=== PATIENT | male | born 1955 | race Caucasian/White ===

== ENCOUNTER 2019-07-19 19:52 | Inpatient (IN) ==
[2019-07-19] MEDS ORDERED: IOPAMIDOL 100 ML BOTTLE IV ONE ×2 (19:53→23:03)
--- NOTE | 2019-07-19 20:31 | Emergency Department Note ---
Abdominal Pain HPI - General Chief Complaint: Abdominal Pain Stated Complaint: abdominal pain Time Seen by Provider: 07/19/19 20:08 Source: patient, EMS Mode of arrival: EMS Limitations: no limitations - History of Present Illness HPI Narrative: 63-year-old male patient presents emergency department via ambulance with chief complaint of sudden onset exquisite left lower quadrant abdominal pain. Patient tells me he was simply sitting at home when the pain started around 1630 this afternoon. Soon afterwards his gave him 1 of her prescribed nitroglycerin tablets. This had no effect on his abdominal pain. However, he did become shaky and jittery associated with the medication ingestion. She admits to being chilled at home. He denies any overt fevers or sweats. He denies any congestion, runny nose, or cough. He denies any exposure to the novel coronavirus. He denies shortness of breath. He denies retrosternal chest pain or palpitations. He denies nausea, vomiting, diarrhea, or constipation. He had to normal bowel movements today. He describes the pain to his abdomen is sharp, stabbing type pain. He denies any previous history of intra-abdominal problems including diverticulitis. He does mention undergoing a colonoscopy 3 years ago that mentioned several diverticula. Patient admits to a history of hypothyroidism and chronic pain issues. - Related Data Home Medications Medication Instructions Recorded Confirmed Levothyroxine Sodium [Levoxyl] 137 mcg PO DAILY 01/22/16 01/22/16 Ibuprofen [Motrin] 800 mg PO 01/13/17 Allergies Allergy/AdvReac Type Severity Reaction Status Date / Time No Known Drug Allergies Allergy Verified 01/13/17 12:57 Review of Systems All systems ED: reviewed and negative except as stated. Abdominal Pain PMH - Social History Smoking status: Never smoker Physical Exam Limitations: no limitations General appearance: alert, anxious, other (Well-developed, well-nourished, 63-year-old male patient laying semirecumbent on the emergency room gurney in no acute respiratory distress.) Head: atraumatic, normocephalic Eye: Present: normal appearance, PERRL, EOMI. Absent: scleral icterus, conjunctival injection ENT: Present: normal oropharynx, mucous membranes moist Neck: Present: trachea midline. Absent: lymphadenopathy Chest: Present: symmetric chest wall rise Respiratory: Present: normal lung sounds bilaterally. Absent: respiratory distress, wheezes, stridor, accessory muscle use, prolonged expiratory phase Cardiovascular: Present: regular rate, normal rhythm. Absent: systolic murmur, diastolic murmur Abdominal: Present: soft, tenderness, hyperactive bowel sounds (To the right lower quadrant.), tenderness at [place]'s Point. Absent: distention, guarding, rebound, rigidity, organomegaly, ascites, mass Abdominal tenderness: Present: RLQ, LLQ, severe Extremities: Present: normal inspection, full ROM, normal capillary refill. Absent: pedal edema Back: Absent: CVA tenderness (R), CVA tenderness (L), spinous process tenderness Neurological: Present: alert, oriented X3 Psychiatric: Present: normal affect, anxious Skin: Present: warm, dry, pallor Course Course Narrative: Patient was brought into the emergency department and a history and physical exam was performed. Saline lock was established and laboratory studies were drawn. Abdominal/pelvic CT scan with contrast was ordered and reviewed. Patient was given Dilaudid 0.5 mg IVP. Normal saline was started 1000 mL bolus. Review of his laboratory studies are as follows: CBC WBC 4.8, RBC 4.06, hemoglobin 13.0, hematocrit 38.9, platelets 237. CMP anion gap 17, all others within normal limits. Contrast abdominal/pelvic CT scan showing sigmoid diverticulitis with likely small volume pneumoperitoneum associated with presumably perforation. Radiologist also mentions inflammatory change for the diverticulitis extending into the superior lateral bladder wall. At a minimum this is associated with cyst tightness but may also represent colovesicular fistula. The differential diagnosis of lower abdominal pain in the adult patient includes the following: Appendicitis, diverticulitis, nephrolithiasis, pyelonephritis, acute urinary retention, cystitis, infectious colitis. All of these conditions were considered during the patient's evaluation and work-up. After reviewing all the data I discussed these findings with my collaborating physician (Dr. Banks) who recommended I consult with the general surgeon about likely admission to the hospital. With this in mind, I reached out to our on- call general surgeon (Dr. Price) and discussed the case with him. He concurred that the patient should be admitted under the surgical service. He recommended holding orders and that he would follow-up the patient tomorrow morning. Afterward, I discussed this with the patient and he agrees to admission. Patient continues to be afebrile and has been hemodynamically stable. He is going to be admitted as mentioned under the care of Dr. Price and the surgical service. After holding orders, all further treatment decisions, modalities, and ultimate patient disposition will be carried out by Dr. Price. Vital Signs Temperature 98.1 F 07/19/19 19:55 Pulse Rate 83 07/19/19 19:55 Respiratory Rate 16 07/19/19 19:55 Blood Pressure 132/72 07/19/19 19:55 Pulse Oximetry (%) 99 07/19/19 19:55 Temperature 98.1 F 07/19/19 19:55 Pulse Rate 77 07/19/19 21:46 Respiratory Rate 16 07/19/19 19:55 Blood Pressure 142/79 07/19/19 21:46 Pulse Oximetry (%) 94 07/19/19 21:46 Abdominal Pain - Lab Data Lab results reviewed: Yes I reviewed the patient's lab results. Result diagrams: 07/19/19 20:30 07/19/19 20:30 Lab Results 07/19/19 07/19/19 Range/Units 20:30 20:30 WBC 4.8 (4.50-11.00) K/mcL RBC 4.06 L (4.63-6.08) M/mcL Hgb 13.0 L (13.7-17.5) g/dL Hct 38.9 L (40.1-51.0) % POC Hct 40.0 L (41.0-55.0) % MCV 95.8 (80.0-100.0) fL MCH 32.0 (26.0-34.0) pg MCHC 33.4 (31.0-36.0) g/dL RDW 13.3 (11.5-14.5) % Plt Count 237 (140-440) K/mcL MPV 9.1 (7.4-10.4) fL Gran % 83.4 H (38.0-78.0) % Lymph % (Auto) 13.4 L (15.5-49.0) % [place] % (Auto) 1.5 (1.0-12.0) % Eos % (Auto) 1.5 (0.0-7.0) % Baso % (Auto) 0.2 (0.0-2.0) % Gran # 3.98 (1.80-8.00) K/mcL Lymph # (Auto) 0.64 L (1.50-4.80) K/mcL [place] # (Auto) 0.07 L (0.10-0.90) K/mcL Eos # (Auto) 0.07 (0.00-0.70) K/mcL Baso # (Auto) 0.01 (0.00-0.30) K/mcL POC Sodium 139 (133-145) mmol/L Sodium 140 (133-145) mmol/L POC Potassium 3.9 (3.3-5.1) mmol/L Potassium 4.1 (3.3-5.1) mmol/L POC Chloride 101 (96-108) mmol/L Chloride 99 (96-108) mmol/L Carbon Dioxide 24 (22-30) mmol/L POC Total CO2 25 (22-30) mmol/L Anion Gap 17.0 H (8-16) POC BUN 16 (8-23) mg/dl BUN 17 (8-23) mg/dl Creatinine 0.9 (0.7-1.2) mg/dl POC Creatinine 0.9 (0.7-1.2) mg/dl GFR Calculation 92 Glucose 91 (70-105) mg/dL POC Glucose 93 (70-105) mg/dL Calcium 9.6 (8.6-10.4) mg/dl POC WB Ioniz Calcium 1.19 (1.16-1.32) mmol/L Total Bilirubin 0.5 (0.0-1.0) mg/dL AST 31 (0-37) U/l ALT 23 (0-40) U/l Alkaline Phosphatase 65 (39-117) U/L Total Protein 7.5 (5.9-8.4) gm/dL Albumin 4.5 (3.2-5.2) gm/dL Globulin 3.0 (2.2-3.7) gm/dL Albumin/Globulin Ratio 1.5 (1.0-2.3) - Radiology Data Radiology results reviewed: Yes I reviewed the patient's radiology results. Radiologist read the contrast abdominal/pelvic CT scan sigmoid diverticulitis with small volume pneumoperitoneum and small volume free fluid likely as a result of perforation. Radiologist also mentioned inflammatory change from the diverticulitis extending into the left superolateral bladder wall. This is associated with cystitis and possible colovesicular fistula. However, the radiologist mentions there is no gas within the bladder lumen at the time of exa m. Disposition Pt seen by [employer]N/PA only: Yes Clinical Impression: Diverticulitis Disposition: Xfer As Inpt ([facility]) Condition: Good Referrals: Shonna Marquez ARNP [Primary Care Provider] - Irineo Price MD [Physician] - Time of Disposition: 22:10
[2019-07-19] MEDS ORDERED: HYDROmorphone 0.5 MG/0.5 ML SYRINGE IV PRN (20:35)
[2019-07-19 20:36] LABS: POC Blood Urea Nitrogen 16 mg/dl (8-23); POC CO2 25 mmol/L (22-30); POC Calcium, Ionized 1.19 mmol/L (1.16-1.32); POC Chloride 101 mmol/L (96-108); POC Creatinine 0.9 mg/dl (0.7-1.2); POC Glucose, Random 93 mg/dL (70-105); POC Potassium 3.9 mmol/L (3.3-5.1); POC Sodium 139 mmol/L (133-145)
[2019-07-19] MEDS ORDERED: ONDANSETRON 4 MG/2 ML VIAL IV ONE (21:10)
[2019-07-19 21:31] LABS: Basophils # (Auto) 0.01 K/mcL (0.00-0.30); Basophils % (Auto) 0.2 % (0.0-2.0); Eosinophils # (Auto) 0.07 K/mcL (0.00-0.70); Eosinophils % (Auto) 1.5 % (0.0-7.0); Granulocytes % (Auto) 83.4 % (38.0-78.0); Hematocrit 38.9 % (40.1-51.0); Lymphocytes # (Auto) 0.64 K/mcL (1.50-4.80); Lymphocytes % (Auto) 13.4 % (15.5-49.0); Mean Cell Volume 95.8 fL (80.0-100.0); Mean Corpuscular HGB Conc 33.4 g/dL (31.0-36.0); Mean Platelet Volume 9.1 fL (7.4-10.4); Monocytes # (Auto) 0.07 K/mcL (0.10-0.90); Monocytes % (Auto) 1.5 % (1.0-12.0); Platelet Count 237 K/mcL (140-440); RBC 4.06 M/mcL (4.63-6.08); Red Cell Distribution Width 13.3 % (11.5-14.5); WBC 4.8 K/mcL (4.50-11.00)
[2019-07-19 21:51] LABS: ALT/SGPT 23 U/l (0-40); AST/SGOT 31 U/l (0-37); Albumin 4.5 gm/dL (3.2-5.2); Albumin/Globulin Ratio 1.5 (1.0-2.3); Alkaline Phosphatase 65 U/L (39-117); Bilirubin,Total 0.5 mg/dL (0.0-1.0); Blood Urea Nitrogen 17 mg/dl (8-23); Calcium 9.6 mg/dl (8.6-10.4); Carbon Dioxide 24 mmol/L (22-30); Chloride 99 mmol/L (96-108); Glomerular Filtration Rate 92; Glucose 91 mg/dL (70-105)
[2019-07-19] MEDS ORDERED: ONDANSETRON 4 MG/2 ML VIAL IV PRN (22:12)
[2019-07-19] MEDS ORDERED: ACETAMINOPHEN 325 MG TABLET PO PRN (22:12)
[2019-07-19] MEDS: metroNIDAZOLE 500 MG/100 ML BAG IV SCH (23:23)
[2019-07-19] MEDS: 0.9 % SODIUM CHLORIDE 1,000 ML IV SCH (23:25)
[2019-07-20] MEDS: HYDROmorphone 0.5 MG/0.5 ML SYRINGE IV PRN ×8 (00:30→23:29)
[2019-07-20] MEDS: CIPROFLOXACIN 400 MG/200 ML BAG IV SCH ×3 (00:34→20:49)
[2019-07-20] MEDS: 0.9 % SODIUM CHLORIDE 1,000 ML IV SCH ×3 (05:26→23:30)
[2019-07-20] MEDS: metroNIDAZOLE 500 MG/100 ML BAG IV SCH ×4 (05:51→23:28)
[2019-07-20] MEDS: 0.9 % SODIUM CHLORIDE 10 ML SYRINGE IV SCH ×3 (05:52→21:12)
[2019-07-20 06:38] LABS: Basophils # (Auto) 0 K/mcL (0.00-0.30); Basophils % (Auto) 0 % (0.0-2.0); Eosinophils # (Auto) 0 K/mcL (0.00-0.70); Eosinophils % (Auto) 0 % (0.0-7.0); Granulocytes % (Auto) 89.7 % (38.0-78.0); Hematocrit 36.4 % (40.1-51.0); Hemoglobin 12.1 g/dL (13.7-17.5); Lymphocytes # (Auto) 0.38 K/mcL (1.50-4.80); Lymphocytes % (Auto) 5.1 % (15.5-49.0); Mean Cell Volume 96.6 fL (80.0-100.0); Mean Corpuscular HGB Conc 33.2 g/dL (31.0-36.0); Monocytes # (Auto) 0.39 K/mcL (0.10-0.90); Monocytes % (Auto) 5.2 % (1.0-12.0); Platelet Count 195 K/mcL (140-440); RBC 3.77 M/mcL (4.63-6.08); Red Cell Distribution Width 13.4 % (11.5-14.5); WBC 7.5 K/mcL (4.50-11.00)
[2019-07-20 07:00] LABS: ALT/SGPT 20 U/l (0-40); AST/SGOT 25 U/l (0-37); Albumin/Globulin Ratio 1.6 (1.0-2.3); Alkaline Phosphatase 47 U/L (39-117); Bilirubin,Direct < 0.2 mg/dL (0.0-0.3); Bilirubin,Total 0.9 mg/dL (0.0-1.0); Blood Urea Nitrogen 14 mg/dl (8-23); Calcium 8.9 mg/dl (8.6-10.4); Carbon Dioxide 24 mmol/L (22-30); Chloride 100 mmol/L (96-108); Globulin 2.5 gm/dL (2.2-3.7); Glomerular Filtration Rate 96; Glucose 127 mg/dL (70-105); Lactate Dehydrogenase 147 U/L (94-250); Phosphorous 4.2 mg/dL (2.7-4.5); Triglycerides 60 mg/dl (<150); Uric Acid 4.8 mg/dL (2.5-8.0)
--- NOTE | 2019-07-20 08:20 | Cat Scan Report ---
History: Sudden onset Bilateral lower quadrant pain TECHNIQUE: The patient was imaged following intravenous but no oral contrast scanning during the portal venous phase from the diaphragm to the symphysis pubis. Sagittal and coronal reformats were created. The radiation exposure was limited using dose reduction technology. FINDINGS: There are small bands of scar or discoid atelectasis in the lingula lateral basal segment left lower lobe and inferiorly medially in the right middle lobe. No pleural effusion is present. The liver is normal in size but there is mild fatty infiltration. The spleen is normal in size and homogeneous. Gallbladder and bile ducts are normal. There is no evidence of mass or inflammation the pancreas. The adrenals are normal. Kidneys are normal in size shape and contour. There is an exophytic 1.4 cm cyst at the lower pole the right kidney. An 8 mm parenchymal cyst is seen medially in the lower pole of left kidney.. There is mild perinephric stranding of the fat surrounding both kidneys. There is no evidence of kidney stone or hydronephrosis. There is mild ectasia of the distal abdominal aorta and common iliac arteries. The There is minimal plaque formation in the aorta. There are multiple diverticula in the descending and sigmoid colon. Acute diverticulitis is present in the mid and proximal sigmoid colon. There is significant stranding and inflammation of the surrounding fat. This is contiguous with the dome of the bladder. The wall of the bladder also appears to be thickened and inflamed. There is no associated abscess and no gas within the lumen of the bladder. Trace amount of ascites is seen deep in the pelvis. There is also small amount of free intraperitoneal air anterior to the liver. There is severe disc space narrowing at L4-5 and L5-S1 and moderate size spurs forming around the margins of the disks throughout the lumbar and lower thoracic spine. IMPRESSION: Acute diverticulitis of the sigmoid colon. There has been a perforation with small amount of free intraperitoneal air and a small amount of ascites deep in the pelvis No abscess Inflammation from the inflamed diverticula extending to and involving the wall the bladder Interpreted and Authenticated by: Javier Mena 07/20/19
--- NOTE | 2019-07-20 10:50 | General Surg History&Physical ---
History of Present Illness Patient information: Note initiated : 07/20/19 at 10:48 am Service Date, if different from initiated Date: [] Patient: Joni Pedro 63 y/o M admitted on 07/19/19 for abdominal pain. Chief Complaint: [] HPI: Mr. Pedro is a 63 year old M admitted with acute diverticulitis. The patient had acute onset of severe lower abdominal left lower quadrant and suprapubic pain about 4 PM yesterday. She did not have nausea or vomiting. He states that initially it felt like gas pain became increasingly severe. He had a regular bowel movement about an hour later. He was finally seen in the emergency room about 7 PM where evaluation reveals evidence of acute sigmoid diverticulitis with evidence of microperforation. He did not have any fever or chills. He has colonoscopy in 2017 which was normal except for diverticulosis. He had a brother who had colon polyps. Patient was admitted last evening and still has significant discomfort. He remains afebrile and does not have leukocytosis. Review of Systems All systems PM: reviewed and no additional remarkable complaints except as stated (negative except as noted in HPI and below) - EENT Ears: bilateral: decreased hearing, tinnitus Nose, mouth and throat: abnormal hearing - Musculoskeletal arthralgias, other ( diffuse joint pain) Past History Past medical history: Osteoarthritis. Hypothyroidism Past surgical history: Arthroscopy right knee 2. Bilateral stapedectomy of ears Past family history: Father age 73 due to congestive heart failure. Mom age 85 due to complications of diabetes. One brother due to acute IL. One brother due to pancreatic cancer. One brother due to accidental fall Past social history: Retired . She was one can of tobacco every 2 weeks. Uses at least 2 alcoholic beverages daily. Denies drug use Medications and Allergies Home Medications Medication Instructions Recorded Confirmed Type Levothyroxine Sodium [Levoxyl] 100 mcg PO DAILY 01/22/16 07/19/19 History Ibuprofen [Motrin] 800 mg PO DAILY 01/13/17 07/19/19 History Glucosam/Chond/Hyalu/Cf Borate 1 each PO BID 07/19/19 07/19/19 History [Move Free Joint Health Tablet] Multivit-Min/FA/Lycopen/Lutein 1 each PO DAILY 07/19/19 07/19/19 History [Adults 50 Plus Multivitamin] Allergies Allergy/AdvReac Type Severity Reaction Status Date / Time No Known Drug Allergies Allergy Unverified 07/19/19 23:39 Exam Temp Pulse Resp BP Pulse Ox 97.5 F 74 16 128/80 93 07/20/19 08:00 07/20/19 08:00 07/20/19 08:00 07/20/19 08:00 07/20/19 08:00 - General physical appearance well developed, well nourished, no distress - Eyes PERRL, normal ocular movement - ENT normal pinna, normal nares, normal mucosa, no hearing loss, no congestion - Head Head exam IM: Present: atraumatic, normocephalic - Neck no masses, no bruits, trachea midline, no lymphadenopathy, no venous distension - Cardiovascular Cardiovascular exam IM: Present: normal rate and rhythm, RRR, +S1, +S2. Absent: JVD, tachycardia - Respiratory normal expansion, normal respiratory effort, clear to percussion, clear to auscultation - Abdomen Abdomen: Present: tender (diffusely tender abdomen with guarding; abdomen is rigid in the suprapubic midline and left lower quadrant), bowel sounds Hernia: Present: none - Genitourinary Present: normal penis with no external lesions - Integumentary Present: no rash, no growths, no abnormal pigmentation - Neurologic Present: normal coordination, normal sensation - Musculoskeletal Present: normal gait, normal posture - Psychiatric Present: oriented to time, oriented to person, oriented to place, speech is normal, memory intact Assessment and Plan (1) Acute diverticulitis of intestine Bowel rest. Clear liquid diet as tolerated. Ciprofloxacin and metronidazole IV 4 days. Follow-up CT on Wednesday. If clinically improved. We'll discharged home on oral antibiotics 3 weeks Status: Acute (2) Hypothyroidism home medications will be given Status: Acute (3) Osteoarthritis Toradol 30 mg IV every 6 hours when necessary joint pain Status: Acute
[2019-07-21] MEDS: 0.9 % SODIUM CHLORIDE 1,000 ML IV SCH ×4 (03:30→22:35)
[2019-07-21] MEDS: metroNIDAZOLE 500 MG/100 ML BAG IV SCH ×3 (05:19→17:27)
[2019-07-21] MEDS: 0.9 % SODIUM CHLORIDE 10 ML SYRINGE IV SCH ×3 (05:19→21:22)
[2019-07-21 06:40] LABS: Basophils # (Auto) 0.01 K/mcL (0.00-0.30); Basophils % (Auto) 0.1 % (0.0-2.0); Eosinophils # (Auto) 0.02 K/mcL (0.00-0.70); Eosinophils % (Auto) 0.2 % (0.0-7.0); Granulocytes % (Auto) 88.9 % (38.0-78.0); Hematocrit 35.1 % (40.1-51.0); Hemoglobin 11.2 g/dL (13.7-17.5); Lymphocytes # (Auto) 0.61 K/mcL (1.50-4.80); Lymphocytes % (Auto) 7.1 % (15.5-49.0); Mean Cell Volume 99.4 fL (80.0-100.0); Mean Corpuscular HGB Conc 31.9 g/dL (31.0-36.0); Mean Platelet Volume 9.4 fL (7.4-10.4); Monocytes # (Auto) 0.32 K/mcL (0.10-0.90); Monocytes % (Auto) 3.7 % (1.0-12.0); Platelet Count 187 K/mcL (140-440); RBC 3.53 M/mcL (4.63-6.08); Red Cell Distribution Width 13.4 % (11.5-14.5); WBC 8.7 K/mcL (4.50-11.00)
[2019-07-21 07:05] LABS: ALT/SGPT 15 U/l (0-40); AST/SGOT 19 U/l (0-37); Albumin 3.4 gm/dL (3.2-5.2); Albumin/Globulin Ratio 1.2 (1.0-2.3); Alkaline Phosphatase 59 U/L (39-117); Bilirubin,Direct < 0.2 mg/dL (0.0-0.3); Bilirubin,Total 0.7 mg/dL (0.0-1.0); Blood Urea Nitrogen 13 mg/dl (8-23); Carbon Dioxide 26 mmol/L (22-30); Chloride 97 mmol/L (96-108); Globulin 2.9 gm/dL (2.2-3.7); Glomerular Filtration Rate 92; Glucose 105 mg/dL (70-105); Lactate Dehydrogenase 172 U/L (94-250); Triglycerides 68 mg/dl (<150)
[2019-07-21 07:18] LABS: Phosphorous 2.4 mg/dL (2.7-4.5)
[2019-07-21 07:20] LABS: Carcinoembryonic Antigen 1.7 ng/mL (0.0-3.4)
[2019-07-21] MEDS: LEVOTHYROXINE 100 MCG TABLET PO SCH (07:35)
[2019-07-21] MEDS: CIPROFLOXACIN 400 MG/200 ML BAG IV SCH ×2 (08:22→21:30)
[2019-07-21] MEDS: HYDROmorphone 0.5 MG/0.5 ML SYRINGE IV PRN ×2 (13:30→20:23)
--- NOTE | 2019-07-21 13:43 | General Surgery Progress Note ---
Subjective Patient reports: feels better, pain is less, flatus, bowel movement, afebrile Narrative: Note initiated : 07/21/19 at 1:41 pm Service Date, if different from initiated Date: [] Patient: Joni Pedro 63 y/o M admitted on 07/19/19 for abdominal pain. Chief Complaint: [patient continues to improve. He has less abdominal discomfort. He has had flatus but no bowel movement. White count 8.7, hemoglobin 11.2, hematocrit 35.1, phosphorus 2.4] Objective Temp Pulse Resp BP Pulse Ox 98.6 F 80 20 113/77 93 07/21/19 08:00 07/21/19 08:00 07/21/19 08:00 07/21/19 08:00 07/21/19 08:00 - Additional Data Intake & Output - Last 24 hours: Intake & Output 07/19/19 07/20/19 07/21/19 07/22/19 05:59 05:59 05:59 05:59 Intake Total 1052 4360 1340 Output Total 350 925 500 Balance 702 3435 840 Weight 178 lb 14.4 oz 183 lb - General physical appearance well developed, well nourished, no distress - Eyes PERRL, normal ocular movement - ENT normal pinna, normal nares, normal mucosa, no hearing loss, no congestion - Neck no masses, no bruits, trachea midline, no lymphadenopathy, no venous distension - Respiratory normal expansion, normal respiratory effort, clear to auscultation - Cardiovascular Cardiovascular exam: Present: normal rate and rhythm, RRR, +S1, +S2. Absent: JVD, tachycardia - Abdomen tender (diffuse tenderness with guarding in left lower quadrant and suprapubic area; normal bowel sounds) - Integumentary no rash, no growths, no abnormal pigmentation - Neurologic normal coordination, normal sensation - Musculoskeletal normal gait, normal posture - Psychiatric oriented to time, oriented to person, oriented to place, speech is normal, memory intact - Labs 07/21/19 05:14 07/21/19 05:14 Diabetes panel 07/21/19 Range/Units 05:14 Sodium 131 L (133-145) mmol/L Potassium 4.3 (3.3-5.1) mmol/L Chloride 97 (96-108) mmol/L Carbon Dioxide 26 (22-30) mmol/L BUN 13 (8-23) mg/dl Creatinine 0.9 (0.7-1.2) mg/dl Glucose 105 (70-105) mg/dL Calcium 9.0 (8.6-10.4) mg/dl AST 19 (0-37) U/l ALT 15 (0-40) U/l Alkaline Phosphatase 59 (39-117) U/L Total Protein 6.3 (5.9-8.4) gm/dL Albumin 3.4 (3.2-5.2) gm/dL Triglycerides 68 (<150) mg/dl Calcium panel 07/21/19 Range/Units 05:14 Calcium 9.0 (8.6-10.4) mg/dl Phosphorus 2.4 L (2.7-4.5) mg/dL Albumin 3.4 (3.2-5.2) gm/dL Pituitary panel 07/21/19 Range/Units 05:14 Sodium 131 L (133-145) mmol/L Potassium 4.3 (3.3-5.1) mmol/L Chloride 97 (96-108) mmol/L Carbon Dioxide 26 (22-30) mmol/L BUN 13 (8-23) mg/dl Creatinine 0.9 (0.7-1.2) mg/dl Glucose 105 (70-105) mg/dL Calcium 9.0 (8.6-10.4) mg/dl Adrenal panel 07/21/19 Range/Units 05:14 Sodium 131 L (133-145) mmol/L Potassium 4.3 (3.3-5.1) mmol/L Chloride 97 (96-108) mmol/L Carbon Dioxide 26 (22-30) mmol/L BUN 13 (8-23) mg/dl Creatinine 0.9 (0.7-1.2) mg/dl Glucose 105 (70-105) mg/dL Calcium 9.0 (8.6-10.4) mg/dl Total Bilirubin 0.7 (0.0-1.0) mg/dL AST 19 (0-37) U/l ALT 15 (0-40) U/l Alkaline Phosphatase 59 (39-117) U/L Total Protein 6.3 (5.9-8.4) gm/dL Albumin 3.4 (3.2-5.2) gm/dL Assessment and Plan (1) Acute diverticulitis of intestine Status: Acute Assessment and plan: Patient is clinically improved Current Visit: Yes (2) Hypothyroidism Status: Acute Current Visit: Yes (3) Osteoarthritis Status: Acute Current Visit: Yes - Time Spent With Patient Total time spent is greater than 50% in coordination of care (as documented) at patient's floor/unit and/or counseling patient:
[2019-07-21] MEDS ORDERED: CALCIUM CARBONATE 500 MG TAB.CHEW CHEWED PRN (21:11)
[2019-07-21] MEDS ORDERED: ACETAMINOPHEN 1,000 MG/100 ML BOTTLE IV PRN (21:16)
[2019-07-21] MEDS: PANTOPRAZOLE 40 MG VIAL IV SCH (21:38)
[2019-07-21] MEDS: MEROPENEM 1 GM in 0.9 % SODIUM CHLORIDE 50 ML IV SCH (22:50)
[2019-07-22] MEDS: KETOROLAC 30 MG/ML VIAL IV PRN ×2 (00:09→05:59)
[2019-07-22] MEDS: metroNIDAZOLE 500 MG/100 ML BAG IV SCH ×4 (00:09→18:57)
[2019-07-22] MEDS: HYDROmorphone 0.5 MG/0.5 ML SYRINGE IV PRN (05:59)
[2019-07-22] MEDS: 0.9 % SODIUM CHLORIDE 10 ML SYRINGE IV SCH ×3 (06:11→20:53)
[2019-07-22 06:42] LABS: Basophils # (Auto) 0.02 K/mcL (0.00-0.30); Basophils % (Auto) 0.2 % (0.0-2.0); Eosinophils # (Auto) 0.04 K/mcL (0.00-0.70); Eosinophils % (Auto) 0.3 % (0.0-7.0); Granulocytes % (Auto) 89.8 % (38.0-78.0); Hematocrit 36.5 % (40.1-51.0); Hemoglobin 11.8 g/dL (13.7-17.5); Lymphocytes # (Auto) 0.71 K/mcL (1.50-4.80); Mean Cell Volume 98.1 fL (80.0-100.0); Mean Corpuscular HGB Conc 32.3 g/dL (31.0-36.0); Mean Platelet Volume 9.6 fL (7.4-10.4); Monocytes # (Auto) 0.44 K/mcL (0.10-0.90); Monocytes % (Auto) 3.7 % (1.0-12.0); Platelet Count 217 K/mcL (140-440); RBC 3.72 M/mcL (4.63-6.08); Red Cell Distribution Width 13.2 % (11.5-14.5); WBC 11.9 K/mcL (4.50-11.00)
[2019-07-22 06:53] LABS: ALT/SGPT 12 U/l (0-40); AST/SGOT 18 U/l (0-37); Albumin 3.3 gm/dL (3.2-5.2); Alkaline Phosphatase 66 U/L (39-117); Bilirubin,Direct < 0.2 mg/dL (0.0-0.3); Bilirubin,Total 0.5 mg/dL (0.0-1.0); Blood Urea Nitrogen 14 mg/dl (8-23); Calcium 8.8 mg/dl (8.6-10.4); Carbon Dioxide 24 mmol/L (22-30); Chloride 98 mmol/L (96-108); Globulin 3.4 gm/dL (2.2-3.7); Glomerular Filtration Rate 92; Glucose 105 mg/dL (70-105); Lactate Dehydrogenase 169 U/L (94-250); Triglycerides 62 mg/dl (<150); Uric Acid 4.3 mg/dL (2.5-8.0)
[2019-07-22 06:57] LABS: Phosphorous 2.2 mg/dL (2.7-4.5)
[2019-07-22] MEDS: PANTOPRAZOLE 40 MG VIAL IV SCH ×2 (08:10→20:26)
[2019-07-22] MEDS: LEVOTHYROXINE 100 MCG TABLET PO SCH (08:10)
[2019-07-22] MEDS: 0.9 % SODIUM CHLORIDE 1,000 ML IV SCH ×2 (09:53→19:26)
[2019-07-22] MEDS: MEROPENEM 1 GM in 0.9 % SODIUM CHLORIDE 50 ML IV SCH ×3 (09:54→23:42)
--- NOTE | 2019-07-22 12:11 | General Surgery Progress Note ---
Subjective Patient reports: feels better, pain is less, tolerating liquids well, flatus, bowel movement, fever Narrative: Note initiated : 07/22/19 at 12:08 pm Service Date, if different from initiated Date: [] Patient: Joni Pedro 63 y/o M admitted on 07/19/19 for abdominal pain. Chief Complaint: [Patient complained of increased abdominal discomfort last evening. He also had profuse sweats. His peak temperature was 99.4. He also had heartburn which was treated and improved appropriately. Today he states he feels much better. He had a very large bowel movement today and had relief of the palpable pain. He does not have tenderness that was apparently last evening. White blood count 11.9, hemoglobin 11.8, hematocrit 36.5, phosphorus 2.2.] Objective Temp Pulse Resp BP Pulse Ox 98.8 F 68 14 130/85 98 07/22/19 07:58 07/22/19 07:58 07/22/19 07:58 07/22/19 07:58 07/22/19 07:58 - Additional Data Intake & Output - Last 24 hours: Intake & Output 07/20/19 07/21/19 07/22/19 07/23/19 05:59 05:59 05:59 05:59 Intake Total 1052 4360 4270 1150 Output Total 917 754 9583 Balance 702 3435 3270 1150 Weight 178 lb 14.4 oz 183 lb 182 lb 14.4 oz - General physical appearance well developed, well nourished, moderate distress, moderate pain - Eyes PERRL, normal ocular movement - ENT normal pinna, normal nares, normal mucosa, no hearing loss, no congestion - Neck no masses, no bruits, trachea midline, no lymphadenopathy, no venous distension - Respiratory normal expansion, normal respiratory effort, clear to auscultation - Cardiovascular Cardiovascular exam: Present: normal rate and rhythm, RRR, +S1, +S2. Absent: JVD, tachycardia - Abdomen tender (mild tenderness and suprapubic midline and left lower quadrant; active bowel sounds; no mass) - Integumentary no rash, no growths, no abnormal pigmentation - Neurologic normal coordination, normal sensation - Musculoskeletal normal gait, normal posture - Psychiatric oriented to time, oriented to person, oriented to place, speech is normal, mem ory intact - Labs 07/22/19 05:32 05/09/20 05:32 Diabetes panel 07/22/19 Range/Units 05:32 Sodium 135 (133-145) mmol/L Potassium 3.5 (3.3-5.1) mmol/L Chloride 98 (96-108) mmol/L Carbon Dioxide 24 (22-30) mmol/L BUN 14 (8-23) mg/dl Creatinine 0.9 (0.7-1.2) mg/dl Glucose 105 (70-105) mg/dL Calcium 8.8 (8.6-10.4) mg/dl AST 18 (0-37) U/l ALT 12 (0-40) U/l Alkaline Phosphatase 66 (39-117) U/L Total Protein 6.7 (5.9-8.4) gm/dL Albumin 3.3 (3.2-5.2) gm/dL Triglycerides 62 (<150) mg/dl Calcium panel 07/22/19 Range/Units 05:32 Calcium 8.8 (8.6-10.4) mg/dl Phosphorus 2.2 L (2.7-4.5) mg/dL Albumin 3.3 (3.2-5.2) gm/dL Pituitary panel 07/22/19 Range/Units 05:32 Sodium 135 (133-145) mmol/L Potassium 3.5 (3.3-5.1) mmol/L Chloride 98 (96-108) mmol/L Carbon Dioxide 24 (22-30) mmol/L BUN 14 (8-23) mg/dl Creatinine 0.9 (0.7-1.2) mg/dl Glucose 105 (70-105) mg/dL Calcium 8.8 (8.6-10.4) mg/dl Adrenal panel 07/22/19 Range/Units 05:32 Sodium 135 (133-145) mmol/L Potassium 3.5 (3.3-5.1) mmol/L Chloride 98 (96-108) mmol/L Carbon Dioxide 24 (22-30) mmol/L BUN 14 (8-23) mg/dl Creatinine 0.9 (0.7-1.2) mg/dl Glucose 105 (70-105) mg/dL Calcium 8.8 (8.6-10.4) mg/dl Total Bilirubin 0.5 (0.0-1.0) mg/dL AST 18 (0-37) U/l ALT 12 (0-40) U/l Alkaline Phosphatase 66 (39-117) U/L Total Protein 6.7 (5.9-8.4) gm/dL Albumin 3.3 (3.2-5.2) gm/dL Assessment and Plan (1) Acute diverticulitis of intestine Status: Acute Assessment and plan: Patient is clinically improved. CT of abdomen and pelvis with IV contrast to be performed tomorrow. Discharge status will be based on results of CT Current Visit: Yes (2) Hypothyroidism Status: Acute Current Visit: Yes (3) Osteoarthritis Status: Acute Current Visit: Yes - Time Spent With Patient Total time spent is greater than 50% in coordination of care (as documented) at patient's floor/unit and/or counseling patient:
[2019-07-22] MEDS: POTASSIUM PHOSPHATE 40 MEQ in DEXTROSE 5% IN WATER 500 ML IV SCH ×2 (13:20→20:26)
[2019-07-22] MEDS ORDERED: MELATONIN 3 MG TABLET PO PRN (20:34)
[2019-07-23] MEDS: metroNIDAZOLE 500 MG/100 ML BAG IV SCH ×4 (00:15→23:40)
[2019-07-23] MEDS: 0.9 % SODIUM CHLORIDE 1,000 ML IV SCH ×5 (00:44→17:54)
[2019-07-23] MEDS: 0.9 % SODIUM CHLORIDE 10 ML SYRINGE IV SCH ×4 (04:01→21:33)
[2019-07-23] MEDS: MEROPENEM 1 GM in 0.9 % SODIUM CHLORIDE 50 ML IV SCH ×3 (05:44→21:33)
[2019-07-23 06:04] LABS: Basophils # (Auto) 0.01 K/mcL (0.00-0.30); Basophils % (Auto) 0.1 % (0.0-2.0); Eosinophils # (Auto) 0.15 K/mcL (0.00-0.70); Eosinophils % (Auto) 1.5 % (0.0-7.0); Granulocytes % (Auto) 86.1 % (38.0-78.0); Hematocrit 32.7 % (40.1-51.0); Hemoglobin 10.8 g/dL (13.7-17.5); Lymphocytes # (Auto) 0.61 K/mcL (1.50-4.80); Lymphocytes % (Auto) 6.2 % (15.5-49.0); Mean Cell Volume 96.5 fL (80.0-100.0); Mean Platelet Volume 9.4 fL (7.4-10.4); Monocytes % (Auto) 6.1 % (1.0-12.0); Platelet Count 240 K/mcL (140-440); RBC 3.39 M/mcL (4.63-6.08); Red Cell Distribution Width 13.2 % (11.5-14.5); WBC 9.9 K/mcL (4.50-11.00)
[2019-07-23 06:37] LABS: ALT/SGPT 10 U/l (0-40); AST/SGOT 14 U/l (0-37); Albumin 2.9 gm/dL (3.2-5.2); Alkaline Phosphatase 61 U/L (39-117); Bilirubin,Direct < 0.2 mg/dL (0.0-0.3); Bilirubin,Total 0.4 mg/dL (0.0-1.0); Blood Urea Nitrogen 10 mg/dl (8-23); Calcium 8.6 mg/dl (8.6-10.4); Carbon Dioxide 23 mmol/L (22-30); Globulin 2.9 gm/dL (2.2-3.7); Glomerular Filtration Rate 102; Glucose 113 mg/dL (70-105); Lactate Dehydrogenase 144 U/L (94-250); Phosphorous 2.7 mg/dL (2.7-4.5); Triglycerides 59 mg/dl (<150); Uric Acid 4.5 mg/dL (2.5-8.0)
[2019-07-23 06:47] LABS: Chloride 102 mmol/L (96-108)
[2019-07-23] MEDS: LEVOTHYROXINE 100 MCG TABLET PO SCH (07:05)
--- NOTE | 2019-07-23 09:08 | Cat Scan Report ---
History: Follow-up diverticulitis TECHNIQUE: The patient was imaged following intravenous but no oral contrast from the diaphragm through the symphysis pubis. Sagittal and coronal reformats were created. The radiation exposure was limited using dose reduction technology. FINDINGS: Small bilateral layering pleural effusions are present. There are thick bands of atelectasis in the right lower lobe with smaller bands of atelectasis in left lower lobe as well as right middle lobe and lingula. The liver and spleen are normal in size and homogeneous. The gallbladder bile ducts are normal. There is no evidence of mass or inflammation the pancreas. The adrenals and kidneys are normal. There is mild perinephric stranding around both kidneys. This is a chronic stable finding and may be from prior evidence of obstruction or previous inflammatory reaction. There is a 1 cm cyst in the lower pole of left kidney. The stomach and proximal small intestine are distended and contain a large amount of fluid. There are numerous air-fluid levels in the jejunum. The jejunum measures up to 5.2 cm in diameter. There is a gradual transition to normal caliber ileum near the level of the hilar region of left kidney. The ileum is decompressed. Patient has acute diverticulitis of the descending and sigmoid colon. This has perforated and there is free intraperitoneal air. The volume of free intraperitoneal air has increased since prior CT done on 07/19/19. In addition the patient has now developed a bilobed abscess containing predominantly gas. This is located anterior to the sigmoid, behind the rectus abdominis muscle and above these anterior superior border of the bladder. The inflammation extends down to the wall of the bladder. No air is present within the urinary bladder. The lobulated abscess pocket measures 2.9 x 5.6 cm. Very small amount of ascites is present deep in the pelvis. There are no abnormally enlarged lymph nodes. The aorta and inferior vena cava are normal. Advanced degenerative changes are present throughout the spine. IMPRESSION: Abscess in the pelvis arising from acute diverticulitis of the sigmoid colon Perforation with free intraperitoneal air Mid small bowel obstruction Dr. Price was called with the results Interpreted and Authenticated by: Javier Mena 07/23/19
[2019-07-23] MEDS: PANTOPRAZOLE 40 MG VIAL IV SCH ×2 (09:15→21:32)
--- NOTE | 2019-07-23 12:10 | General Surgery Progress Note ---
Subjective Patient reports: still having pain, pain is less, flatus, diarrhea, afebrile Narrative: Note initiated : 07/23/19 at 12:09 pm Service Date, if different from initiated Date: [] Patient: Joni Pedro 63 y/o M admitted on 07/19/19 for abdominal pain. Chief Complaint: [patient has had significant abdominal distention states that he feels better. He has a CT earlier today that shows progression of his dive rticulitis with a well-formed bilobed diverticular abscess as well as with increased fluid in the pelvis. He also has more free air major dilatation of the small bowel suggesting either severe ileus or distal obstruction. He also had poor dilation, suggesting possible colonic stenosis. Patient counseled for urgent laparotomy with sigmoid colon resection and colostomy. He is informed that He will have drains and Walker catheter postoperatively .he will hospitalized for an additional 4-5 days. ] Objective Temp Pulse Resp BP Pulse Ox 98.3 F 61 18 121/78 96 07/23/19 08:00 07/23/19 08:00 07/23/19 08:00 07/23/19 08:00 07/23/19 08:00 - Additional Data Intake & Output - Last 24 hours: Intake & Output 07/21/19 07/22/19 07/23/19 07/24/19 05:59 05:59 05:59 05:59 Intake Total 4360 4270 4468.1818 150 Output Total 925 1000 950 Balance 3435 3270 3518.1818 150 Weight 183 lb 182 lb 14.4 oz 182 lb - General physical appearance well developed, well nourished, no distress, moderate pain - Eyes PERRL, normal ocular movement - ENT normal pinna, normal nares, normal mucosa, no hearing loss, no congestion - Neck no masses, no bruits, trachea midline, no lymphadenopathy, no venous distension - Respiratory normal expansion, normal respiratory effort, clear to auscultation - Cardiovascular Cardiovascular exam: Present: normal rate and rhythm - Abdomen tender (diffuse lower abdomen and left lower quadrant tenderness with guarding), bowel sounds (present), surgical scars (none), masses (none), distended (. Moderate distention throughout) - Integumentary no rash, no growths, no abnormal pigmentation - Neurologic normal coordination, normal sensation - Musculoskeletal normal gait, normal posture - Psychiatric oriented to time, oriented to person, oriented to place, speech is normal, memory intact - Labs 07/23/19 05:09 07/23/19 05:09 Diabetes panel 07/23/19 Range/Units 05:09 Sodium 138 (133-145) mmol/L Potassium 3.9 (3.3-5.1) mmol/L Chloride 102 (96-108) mmol/L Carbon Dioxide 23 (22-30) mmol/L BUN 10 (8-23) mg/dl Creatinine 0.7 (0.7-1.2) mg/dl Glucose 113 H (70-105) mg/dL Calcium 8.6 (8.6-10.4) mg/dl AST 14 (0-37) U/l ALT 10 (0-40) U/l Alkaline Phosphatase 61 (39-117) U/L Total Protein 5.8 L (5.9-8.4) gm/dL Albumin 2.9 L (3.2-5.2) gm/dL Triglycerides 59 (<150) mg/dl Calcium panel 07/23/19 Range/Units 05:09 Calcium 8.6 (8.6-10.4) mg/dl Phosphorus 2.7 (2.7-4.5) mg/dL Albumin 2.9 L (3.2-5.2) gm/dL Pituitary panel 07/23/19 Range/Units 05:09 Sodium 138 (133-145) mmol/L Potassium 3.9 (3.3-5.1) mmol/L Chloride 102 (96-108) mmol/L Carbon Dioxide 23 (22-30) mmol/L BUN 10 (8-23) mg/dl Creatinine 0.7 (0.7-1.2) mg/dl Glucose 113 H (70-105) mg/dL Calcium 8.6 (8.6-10.4) mg/dl Adrenal panel 07/23/19 Range/Units 05:09 Sodium 138 (133-145) mmol/L Potassium 3.9 (3.3-5.1) mmol/L Chloride 102 (96-108) mmol/L Carbon Dioxide 23 (22-30) mmol/L BUN 10 (8-23) mg/dl Creatinine 0.7 (0.7-1.2) mg/dl Glucose 113 H (70-105) mg/dL Calcium 8.6 (8.6-10.4) mg/dl Total Bilirubin 0.4 (0.0-1.0) mg/dL AST 14 (0-37) U/l ALT 10 (0-40) U/l Alkaline Phosphatase 61 (39-117) U/L Total Protein 5.8 L (5.9-8.4) gm/dL Albumin 2.9 L (3.2-5.2) gm/dL Assessment and Plan (1) Acute diverticulitis of intestine Status: Acute Assessment and plan: Patient is clinically worse. He has major distention small bowel Large intestines. There is narrowing well lower measuring 5.6cm and extending around the bladder. Patient is counseled for exploratory laparotomy with sigmoid colon resection and colostomy l Current Visit: Yes (2) Hypothyroidism Status: Acute Current Visit: Yes (3) Osteoarthritis Status: Acute Current Visit: Yes - Time Spent With Patient Total time spent is greater than 50% in coordination of care (as documented) at patient's floor/unit and/or counseling patient:
[2019-07-23] MEDS ORDERED: ROPIVACAINE HCL/PF 20 ML VIAL IJ ONE (13:15)
[2019-07-23] MEDS ORDERED: KETAMINE 100 MG/ML ML IV ONE (13:15)
[2019-07-23] MEDS ORDERED: PROPOFOL 200 MG/20 ML VIAL IV ONE (13:15)
[2019-07-23] MEDS ORDERED: ONDANSETRON 4 MG/2 ML VIAL IV ONE (13:15)
[2019-07-23] MEDS ORDERED: SUGAMMADEX SODIUM 200 MG/2 ML VIAL IV ONE (13:15)
[2019-07-23] MEDS ORDERED: ROCURONIUM 10 MG/ML ML IV ONE (13:15)
[2019-07-23] MEDS ORDERED: LIDOCAINE HCL/PF 100 MG/5 ML SYRINGE IV ONE (13:15)
[2019-07-23] MEDS ORDERED: HYDROmorphone 1 MG/ML SYRINGE IV ONE (13:15)
[2019-07-23] MEDS ORDERED: DEXAMETHASONE 10 MG/ML VIAL IV ONE (13:15)
[2019-07-23] MEDS ORDERED: fentaNYL 100 MCG/2 ML VIAL IV ONE (13:15)
[2019-07-23] MEDS ORDERED: BENZOCAINE/MENTHOL 1 LOZENGE PO PRN (14:27)
[2019-07-23] MEDS ORDERED: diphenhydrAMINE 50 MG/ML VIAL IV PRN (14:27)
[2019-07-23] MEDS ORDERED: MEPERIDINE 25 MG/ML SYRINGE IV PRN (14:27)
[2019-07-23] MEDS ORDERED: NALOXONE HCL 0.4 MG/ML VIAL IV PRN (14:27)
[2019-07-23] MEDS ORDERED: IPRATROPIUM/ALBUTEROL 3 ML AMPUL.NEB NEB PRN (14:27)
[2019-07-23] MEDS ORDERED: ONDANSETRON 4 MG/2 ML VIAL IV PRN ×3 (14:27→16:48)
[2019-07-23] MEDS ORDERED: PROMETHAZINE 25 MG/ML VIAL IV PRN (14:27)
[2019-07-23] MEDS ORDERED: LACTATED RINGERS 250 ML IV PRN (14:27)
[2019-07-23] MEDS ORDERED: HYDROmorphone 0.5 MG/0.5 ML SYRINGE IV PRN ×2 (14:27→16:48)
[2019-07-23] MEDS ORDERED: LACTATED RINGERS 1,000 ML IV SCH (14:30)
[2019-07-23] MEDS ORDERED: ACETAMINOPHEN 1,000 MG/100 ML BOTTLE IV SCH (14:30)
[2019-07-23] MEDS ORDERED: BACITRACIN 50,000 UNIT VIAL IR ONE ×2 (14:31→14:40)
[2019-07-23] MEDS ORDERED: ACETAMINOPHEN 1,000 MG/100 ML BOTTLE IV ONE (14:45)
--- NOTE | 2019-07-23 14:58 | Brief Operative Note ---
Date of procedure: 07/23/19 Pre-op diagnosis: perforated diverticulitis with pelvic abscess Post-op diagnosis: other (perforated diverticulitis with pelvic abscess) Procedure: sigmoid colectomy with colostomy Grafts/Implants: No (jpx2) Anesthesia: GETA Findings: perforated distal sigmoid colon with abscess and phlegmon between bladder,colon and small bowel Complications: none Surgeon: Irineo Price Estimated blood loss (cc): 50 Specimens Removed/Pathology: other (abscess cultures ;sigmoid colon) Condition: stable Disposition: PACU
[2019-07-23] MEDS: fentaNYL 100 MCG/2 ML VIAL IV PRN ×4 (15:22→16:10)
[2019-07-23] MEDS: KETOROLAC 30 MG/ML VIAL IV PRN (15:46)
[2019-07-23] MEDS ORDERED: hydrALAZINE 20 MG/ML VIAL IV ONE (16:08)
[2019-07-23] MEDS ORDERED: hydrALAZINE 20 MG/ML VIAL ONE (16:19)
[2019-07-23] MEDS ORDERED: MELATONIN 3 MG TABLET PO PRN (16:48)
[2019-07-23] MEDS ORDERED: CALCIUM CARBONATE 500 MG TAB.CHEW CHEWED PRN (16:48)
[2019-07-23] MEDS: ACETAMINOPHEN 1,000 MG/100 ML BOTTLE IV PRN (21:41)
[2019-07-23] MEDS: HYDROmorphone 0.5 MG/0.5 ML SYRINGE IV PRN (23:40)
[2019-07-24] MEDS: 0.9 % SODIUM CHLORIDE 1,000 ML IV SCH ×5 (03:04→23:28)
[2019-07-24] MEDS: ACETAMINOPHEN 1,000 MG/100 ML BOTTLE IV PRN (05:31)
[2019-07-24] MEDS: HYDROmorphone 0.5 MG/0.5 ML SYRINGE IV PRN (05:32)
[2019-07-24] MEDS: metroNIDAZOLE 500 MG/100 ML BAG IV SCH ×4 (05:32→23:27)
[2019-07-24] MEDS: 0.9 % SODIUM CHLORIDE 10 ML SYRINGE IV SCH ×4 (06:00→20:42)
[2019-07-24] MEDS: MEROPENEM 1 GM in 0.9 % SODIUM CHLORIDE 50 ML IV SCH ×3 (06:05→22:38)
[2019-07-24 06:34] LABS: Basophils # (Auto) 0.01 K/mcL (0.00-0.30); Basophils % (Auto) 0.1 % (0.0-2.0); Eosinophils # (Auto) 0 K/mcL (0.00-0.70); Eosinophils % (Auto) 0 % (0.0-7.0); Granulocytes % (Auto) 86.2 % (38.0-78.0); Hematocrit 36.7 % (40.1-51.0); Hemoglobin 11.8 g/dL (13.7-17.5); Lymphocytes # (Auto) 0.52 K/mcL (1.50-4.80); Lymphocytes % (Auto) 7.3 % (15.5-49.0); Mean Cell Volume 97.9 fL (80.0-100.0); Mean Corpuscular HGB Conc 32.2 g/dL (31.0-36.0); Mean Platelet Volume 9.3 fL (7.4-10.4); Monocytes # (Auto) 0.45 K/mcL (0.10-0.90); Monocytes % (Auto) 6.4 % (1.0-12.0); Platelet Count 289 K/mcL (140-440); RBC 3.75 M/mcL (4.63-6.08); Red Cell Distribution Width 13.3 % (11.5-14.5); WBC 7.1 K/mcL (4.50-11.00)
[2019-07-24 06:42] LABS: ALT/SGPT 9 U/l (0-40); AST/SGOT 12 U/l (0-37); Albumin 2.8 gm/dL (3.2-5.2); Alkaline Phosphatase 44 U/L (39-117); Bilirubin,Direct < 0.2 mg/dL (0.0-0.3); Bilirubin,Total 0.2 mg/dL (0.0-1.0); Blood Urea Nitrogen 14 mg/dl (8-23); Calcium 8.3 mg/dl (8.6-10.4); Carbon Dioxide 21 mmol/L (22-30); Chloride 104 mmol/L (96-108); Globulin 2.8 gm/dL (2.2-3.7); Glomerular Filtration Rate 102; Glucose 123 mg/dL (70-105); Lactate Dehydrogenase 151 U/L (94-250); Phosphorous 3.5 mg/dL (2.7-4.5); Triglycerides 52 mg/dl (<150); Uric Acid 5.2 mg/dL (2.5-8.0)
[2019-07-24] MEDS: LEVOTHYROXINE 100 MCG VIAL IV SCH (08:03)
[2019-07-24] MEDS: PANTOPRAZOLE 40 MG VIAL IV SCH ×2 (09:37→20:42)
[2019-07-24] MEDS: BENZOCAINE 1 SPRAY BOTTLE TOPICAL PRN ×2 (13:25→21:05)
--- NOTE | 2019-07-24 15:33 | General Surgery Progress Note ---
Subjective Patient reports: feels better, still having pain, pain is less, flatus, no bowel movement, afebrile Narrative: Note initiated : 07/24/19 at 3:31 pm Service Date, if different from initiated Date: [] Patient: Joni Pedro 63 y/o M admitted on 07/21/19 for abdominal pain. Chief Complaint: [Patient states that he feels better than he did preoperatively. He's been afebrile. He has had a small amount of gas through his ostomy. His abdominal distention is less. White count 7.1, hemoglobin 11.8, hematocrit 36.7 BUN 14, creatinine 0.7] Objective Temp Pulse Resp BP Pulse Ox 97.5 F 62 18 158/84 98 07/24/19 12:00 07/24/19 12:00 07/24/19 12:00 07/24/19 12:00 07/24/19 12:00 - Additional Data Intake & Output - Last 24 hours: Intake & Output 07/22/19 07/23/19 07/24/19 07/25/19 05:59 05:59 05:59 05:59 Intake Total 4270 4468.1818 4075 1390 Output Total 4466 549 5456 Balance 3270 3518.1818 2175 1390 Weight 182 lb 14.4 oz 182 lb 183 lb 1.6 oz - General physical appearance well developed, well nourished, no distress - Eyes PERRL, normal ocular movement - ENT normal pinna, normal nares, normal mucosa, no hearing loss, no congestion - Neck no masses, no bruits, trachea midline, no lymphadenopathy, no venous distension - Respiratory normal expansion, normal respiratory effort, clear to auscultation - Cardiovascular Cardiovascular exam: Present: normal rate and rhythm, RRR, +S1, +S2. Absent: JVD, tachycardia - Abdomen tender (incision is tender; active bowel sounds; incision looks good and stoma is healthy), bowel sounds (present), surgical scars (none), masses (none) - Integumentary no rash, no growths, no abnormal pigmentation - Neurologic normal coordination, normal sensation - Musculoskeletal normal gait, normal posture - Psychiatric oriented to time, oriented to person, oriented to place, speech is normal, memory intact - Labs 07/24/19 05:16 07/24/19 05:16 Diabetes panel 07/24/19 Range/Units 05:16 Sodium 140 (133-145) mmol/L Potassium 4.1 (3.3-5.1) mmol/L Chloride 104 (96-108) mmol/L Carbon Dioxide 21 L (22-30) mmol/L BUN 14 (8-23) mg/dl Creatinine 0.7 (0.7-1.2) mg/dl Glucose 123 H (70-105) mg/dL Calcium 8.3 L (8.6-10.4) mg/dl AST 12 (0-37) U/l ALT 9 (0-40) U/l Alkaline Phosphatase 44 (39-117) U/L Total Protein 5.6 L (5.9-8.4) gm/dL Albumin 2.8 L (3.2-5.2) gm/dL Triglycerides 52 (<150) mg/dl Calcium panel 07/24/19 Range/Units 05:16 Calcium 8.3 L (8.6-10.4) mg/dl Phosphorus 3.5 (2.7-4.5) mg/dL Albumin 2.8 L (3.2-5.2) gm/dL Pituitary panel 07/24/19 Range/Units 05:16 Sodium 140 (133-145) mmol/L Potassium 4.1 (3.3-5.1) mmol/L Chloride 104 (96-108) mmol/L Carbon Dioxide 21 L (22-30) mmol/L BUN 14 (8-23) mg/dl Creatinine 0.7 (0.7-1.2) mg/dl Glucose 123 H (70-105) mg/dL Calcium 8.3 L (8.6-10.4) mg/dl Adrenal panel 07/24/19 Range/Units 05:16 Sodium 140 (133-145) mmol/L Potassium 4.1 (3.3-5.1) mmol/L Chloride 104 (96-108) mmol/L Carbon Dioxide 21 L (22-30) mmol/L BUN 14 (8-23) mg/dl Creatinine 0.7 (0.7-1.2) mg/dl Glucose 123 H (70-105) mg/dL Calcium 8.3 L (8.6-10.4) mg/dl Total Bilirubin 0.2 (0.0-1.0) mg/dL AST 12 (0-37) U/l ALT 9 (0-40) U/l Alkaline Phosphatase 44 (39-117) U/L Total Protein 5.6 L (5.9-8.4) gm/dL Albumin 2.8 L (3.2-5.2) gm/dL Assessment and Plan (1) Acute diverticulitis of intestine Status: Acute Assessment and plan: Patient is clinically improved. We'll continue present therapy with anticipation of advancing diet in 1-2 days. Reglan 10 mg IV every 6 hours l Current Visit: Yes (2) Hypothyroidism Status: Acute Current Visit: Yes (3) Osteoarthritis Status: Acute Current Visit: Yes - Time Spent With Patient Total time spent is greater than 50% in coordination of care (as documented) at patient's floor/unit and/or counseling patient:
[2019-07-24] MEDS: METOCLOPRAMIDE 10 MG/2 ML VIAL IV SCH ×2 (17:36→23:26)
[2019-07-24] MEDS: KETOROLAC 30 MG/ML VIAL IV PRN ×2 (17:36→23:26)
[2019-07-24] MEDS: ALPRAZolam 0.5 MG TABLET PO PRN (20:42)
[2019-07-25] MEDS: metroNIDAZOLE 500 MG/100 ML BAG IV SCH ×4 (05:40→23:42)
[2019-07-25] MEDS: METOCLOPRAMIDE 10 MG/2 ML VIAL IV SCH ×4 (05:40→23:42)
[2019-07-25] MEDS: 0.9 % SODIUM CHLORIDE 10 ML SYRINGE IV SCH ×3 (05:41→21:02)
[2019-07-25 06:45] LABS: Basophils # (Auto) 0.02 K/mcL (0.00-0.30); Basophils % (Auto) 0.3 % (0.0-2.0); Eosinophils # (Auto) 0.39 K/mcL (0.00-0.70); Eosinophils % (Auto) 5.8 % (0.0-7.0); Granulocytes % (Auto) 62.6 % (38.0-78.0); Hematocrit 33.2 % (40.1-51.0); Hemoglobin 10.8 g/dL (13.7-17.5); Lymphocytes # (Auto) 1.12 K/mcL (1.50-4.80); Lymphocytes % (Auto) 16.6 % (15.5-49.0); Mean Cell Volume 96.5 fL (80.0-100.0); Mean Corpuscular HGB Conc 32.5 g/dL (31.0-36.0); Mean Platelet Volume 9.1 fL (7.4-10.4); Monocytes # (Auto) 0.99 K/mcL (0.10-0.90); Monocytes % (Auto) 14.7 % (1.0-12.0); Platelet Count 277 K/mcL (140-440); RBC 3.44 M/mcL (4.63-6.08); Red Cell Distribution Width 13.3 % (11.5-14.5); WBC 6.8 K/mcL (4.50-11.00)
[2019-07-25 07:19] LABS: ALT/SGPT 8 U/l (0-40); AST/SGOT 14 U/l (0-37); Albumin 2.4 gm/dL (3.2-5.2); Albumin/Globulin Ratio 0.9 (1.0-2.3); Alkaline Phosphatase 41 U/L (39-117); Bilirubin,Direct < 0.2 mg/dL (0.0-0.3); Bilirubin,Total 0.2 mg/dL (0.0-1.0); Blood Urea Nitrogen 17 mg/dl (8-23); Calcium 8.1 mg/dl (8.6-10.4); Carbon Dioxide 21 mmol/L (22-30); Globulin 2.7 gm/dL (2.2-3.7); Glomerular Filtration Rate 109; Glucose 96 mg/dL (70-105); Lactate Dehydrogenase 176 U/L (94-250); Triglycerides 89 mg/dl (<150); Uric Acid 5.3 mg/dL (2.5-8.0)
[2019-07-25 07:21] LABS: Chloride 109 mmol/L (96-108); Phosphorous 1.8 mg/dL (2.7-4.5)
[2019-07-25] MEDS: LEVOTHYROXINE 100 MCG VIAL IV SCH (07:56)
[2019-07-25] MEDS: MEROPENEM 1 GM in 0.9 % SODIUM CHLORIDE 50 ML IV SCH ×3 (07:56→22:43)
--- NOTE | 2019-07-25 08:31 | XRay Report ---
CLINICAL INFORMATION: dislodged NG tube COMPARISON: None. FINDINGS: NG tube tip overlies the suspected location of the gastric pylorus. Stomach, duodenum and jejunum are moderately dilated with decompression of the distal small bowel and colon. No free air. Small left pleural effusion noted IMPRESSION: Partial mid small bowel obstruction. NG tube in satisfactory position Interpreted and Authenticated by: Glenn Hunter 07/25/19
[2019-07-25] MEDS ORDERED: MAGNESIUM SULFATE 32.48 MEQ in DEXTROSE 5% IN WATER 50 ML IV ONE (09:03)
[2019-07-25] MEDS: 0.9 % SODIUM CHLORIDE 1,000 ML IV SCH ×2 (09:40→17:05)
[2019-07-25] MEDS: MAGNESIUM SULFATE 4 GM/100 ML BAG IV SCH ×2 (09:40→14:03)
[2019-07-25] MEDS: PANTOPRAZOLE 40 MG VIAL IV SCH ×2 (09:41→21:02)
[2019-07-25] MEDS: POTASSIUM PHOSPHATE 40 MEQ in DEXTROSE 5% IN WATER 500 ML IV SCH ×2 (10:11→15:24)
--- NOTE | 2019-07-25 12:03 | Operative Note ---
DATE OF OPERATION: 07/23/2019 PREOPERATIVE DIAGNOSIS: Perforated diverticulitis with pelvic abscess. POSTOPERATIVE DIAGNOSIS: Perforated diverticulitis with pelvic abscess. PROCEDURE: Sigmoid colectomy with colostomy. SURGEON: Irineo Price M.D. FINDINGS: Perforated distal sigmoid colon with abscess and phlegmon between the bladder, colon, and small bowel with some inflammatory tissue extending along the left gutter towards the left upper quadrant. DESCRIPTION OF PROCEDURE: Under general anesthesia, the patient's abdomen was prepped and draped in a sterile field. Timeout procedure was carried out as per protocol. Midline incision was made in the lower infraumbilical midline. There was a mass effect in the supraumbilical midline area. Incision extended through the subcutaneous tissue to the peritoneum. At the lower aspect of the incision, there was a large phlegmon with dense inflammatory tissue involving the sigmoid colon, bladder, and some loops of small bowel and omentum. Using blunt dissection, the omentum was removed. Irrigation was carried out. Dissection was then carried out between the sigmoid colon and the bladder, and an abscess cavity was entered. Cultures were taken. Once this was , there were two small bowel loops that were densely adherent in this inflamed tissue. These were dissected using blunt dissection. There was dense inflammation, but there was not complete obstruction. Copious irrigation was carried out. The left colon was then mobilized about mid-descending colon level. The colon was divided proximal and distal to the dense inflammatory segment. The mesocolon was transected using the electrocautery. The specimen was passed off. The colon was further mobilized and an opening was made in the left lower quadrant half distance between the umbilicus and the anterior superior iliac spine. The end of the sigmoid was brought through this opening. The sigmoid colon was sutured to the peritoneum using multiple interrupted silk. Two NEMESIO drains were placed in the pelvis and in the left gutter. Sponge, needle, instrument, and blade counts were verified as correct. Peritoneum and fascia were closed with #1 Prolene. Subcutaneous tissue was irrigated with bacitracin solution and was closed with 2-0 Vicryl. Skin was closed with mandy. The wall of the sigmoid was then sutured to the anterior rectus fascia using interrupted silk. The colon was opened and the end of the colon was sutured to the dermis circumferentially using running 3-0 Vicryl. Tegaderm dressing was placed over the incision and the stoma appliance was placed. The patient tolerated the procedure well. He was awakened, transferred to a bed, and taken to the postanesthetic care unit in stable, satisfactory condition. LCS:mary ellen Job ID: [id number] Doc ID: [id number] Irineo Price M.D.
--- NOTE | 2019-07-25 14:45 | General Surgery Progress Note ---
Subjective Patient reports: feels better, pain is less, flatus, diarrhea, afebrile Narrative: Note initiated : 07/25/19 at 2:43 pm Service Date, if different from initiated Date: [] Patient: Joni Pedro 63 y/o M admitted on 07/21/19 for abdominal pain. Chief Complaint: [Patient is doing well. He had more flatus during the night and has had some liquid bowel movements. He has less abdominal distention. He denies nausea. White count 618, hemoglobin 10.8, hematocrit 33.2 BUN 17, creatinine 0.6, phosphorus 1.8] Objective Temp Pulse Resp BP Pulse Ox 97.7 F 62 18 150/82 96 07/25/19 12:00 07/25/19 12:00 07/25/19 12:00 07/25/19 12:00 07/25/19 12:00 - Additional Data Intake & Output - Last 24 hours: Intake & Output 07/23/19 07/24/19 07/25/19 07/26/19 05:59 05:59 05:59 05:59 Intake Total 4468.1818 4075 2920 1290 Output Total 950 1900 2847 100 Balance 3518.1818 2175 73 1190 Weight 182 lb 183 lb 1.6 oz 188 lb 14.4 oz - General physical appearance well developed, well nourished, no distress - Eyes PERRL, normal ocular movement - ENT normal pinna, normal nares, normal mucosa, no hearing loss, no congestion - Neck no masses (helpful), no bruits, trachea midline, no lymphadenopathy, no venous distension - Respiratory normal expansion, normal respiratory effort, clear to auscultation - Cardiovascular Cardiovascular exam: Present: normal rate and rhythm, RRR, +S1, +S2 (output. The catheter). Absent: tachycardia - Abdomen soft (have a 12 and 14 7 that the catheters to be silicone), tender ( incision looks good; stoma is healthy), bowel sounds (present), surgical scars (none), masses (none) - Integumentary no rash, no growths, no abnormal pigmentation - Neurologic normal coordination, normal sensation - Musculoskeletal normal gait, normal posture - Psychiatric oriented to time, oriented to person, oriented to place, speech is normal, memory intact - Labs 07/25/19 05:15 07/25/19 05:30 Diabetes panel 07/25/19 Range/Units 05:30 Sodium 140 (133-145) mmol/L Potassium 3.5 (3.3-5.1) mmol/L Chloride 109 H (96-108) mmol/L Carbon Dioxide 21 L (22-30) mmol/L BUN 17 (8-23) mg/dl Creatinine 0.6 L (0.7-1.2) mg/dl Glucose 96 (70-105) mg/dL Calcium 8.1 L (8.6-10.4) mg/dl AST 14 (0-37) U/l ALT 8 (0-40) U/l Alkaline Phosphatase 41 (39-117) U/L Total Protein 5.1 L (5.9-8.4) gm/dL Albumin 2.4 L (3.2-5.2) gm/dL Triglycerides 89 (<150) mg/dl Calcium panel 07/25/19 Range/Units 05:30 Calcium 8.1 L (8.6-10.4) mg/dl Phosphorus 1.8 L (2.7-4.5) mg/dL Albumin 2.4 L (3.2-5.2) gm/dL Pituitary panel 07/25/19 Range/Units 05:30 Sodium 140 (133-145) mmol/L Potassium 3.5 (3.3-5.1) mmol/L Chloride 109 H (96-108) mmol/L Carbon Dioxide 21 L (22-30) mmol/L BUN 17 (8-23) mg/dl Creatinine 0.6 L (0.7-1.2) mg/dl Glucose 96 (70-105) mg/dL Calcium 8.1 L (8.6-10.4) mg/dl Adrenal panel 07/25/19 Range/Units 05:30 Sodium 140 (133-145) mmol/L Potassium 3.5 (3.3-5.1) mmol/L Chloride 109 H (96-108) mmol/L Carbon Dioxide 21 L (22-30) mmol/L BUN 17 (8-23) mg/dl Creatinine 0.6 L (0.7-1.2) mg/dl Glucose 96 (70-105) mg/dL Calcium 8.1 L (8.6-10.4) mg/dl Total Bilirubin 0.2 (0.0-1.0) mg/dL AST 14 (0-37) U/l ALT 8 (0-40) U/l Alkaline Phosphatase 41 (39-117) U/L Total Protein 5.1 L (5.9-8.4) gm/dL Albumin 2.4 L (3.2-5.2) gm/dL Assessment and Plan (1) Acute diverticulitis of intestine Status: Acute Assessment and plan: Patient is clinically improved. Discontinue Walker catheter Reglan 10 mg IV every 6 hours. Discontinue nasogastric tube Clear liquid diet l Current Visit: Yes (2) Hypothyroidism Status: Acute Current Visit: Yes (3) Osteoarthritis Status: Acute Current Visit: Yes - Time Spent With Patient Total time spent is greater than 50% in coordination of care (as documented) at patient's floor/unit and/or counseling patient:
[2019-07-25] MEDS: ALPRAZolam 0.5 MG TABLET PO PRN (21:03)
[2019-07-26] MEDS: 0.9 % SODIUM CHLORIDE 1,000 ML IV SCH ×3 (03:49→12:12)
[2019-07-26] MEDS: metroNIDAZOLE 500 MG/100 ML BAG IV SCH ×3 (05:52→17:57)
[2019-07-26] MEDS: METOCLOPRAMIDE 10 MG/2 ML VIAL IV SCH ×3 (05:52→17:57)
[2019-07-26] MEDS: 0.9 % SODIUM CHLORIDE 10 ML SYRINGE IV SCH ×3 (05:53→21:36)
[2019-07-26] MEDS: MEROPENEM 1 GM in 0.9 % SODIUM CHLORIDE 50 ML IV SCH (07:00)
[2019-07-26] MEDS: LEVOTHYROXINE 100 MCG VIAL IV SCH (07:43)
[2019-07-26] MEDS: PANTOPRAZOLE 40 MG VIAL IV SCH ×2 (07:43→21:31)
--- NOTE | 2019-07-26 11:44 | Surgical Pathology Report ---
HISTOLOGY SPECIMEN MICROSCOPIC DIAGNOSIS COLON, SIGMOID, SEGMENTAL RESECTION: -- PERICOLONIC ABSCESS AND ACUTE SEROSITIS WITH ASSOCIATED DIVERTULITIS/DIVERTICULOSIS. -- MARGINS VIABLE. -- THREE MESENTERIC LYMPH NODES WITH REACTIVE LYMPHOID HYPERPLASIA. (DMT:adj) PROCEDURAL IMPRESSION Diverticular abscess. GROSS DESCRIPTION Received in formalin designated as sigmoid per requisition, is a segment of bowel received with both margins stapled and attached daley fat. The specimen measures 10.9 cm in length and is 1.7 cm in diameter. There is thick bright-daley exudate covering approximately one third or the central serosal surface and mesenteric fat. The remaining serosa is daley-pink. The wall is 0.5 cm thick. The mucosa is daley and plicated. Numerous diverticula are identified along the segments length. Four candidate lymph nodes are identified within the mesenteric fat and range in size from 0.2 to 0.3 cm. Grossly there are no areas of perforation identified. Framing Inspector sections submitted - five cassettes: A1 - margins; A2 - areas of possible diverticula; A3 - title insurance sales representative sections of bright-daley exudate on serosal and fatty surfaces; A4 - random sections of colon; A5 - candidate lymph nodes. (SCB:sln) Electronically Signed by: Cristobal Crowe M.D.
--- NOTE | 2019-07-26 14:42 | General Surgery Progress Note ---
Subjective Patient reports: feels better, pain is less, tolerating liquids well, flatus, bowel movement, diarrhea, afebrile Narrative: Note initiated : 07/26/19 at 2:40 pm Service Date, if different from initiated Date: [] Patient: Joni Pedro 63 y/o M admitted on 07/21/19 for abdominal pain. Chief Complaint: [patient continues to improve. He has good stoma function with large volume of flatus and some liquid stool. He does not have any abdominal distention. He is afebrile. He is tolerating liquid diet without difficulty] Objective Temp Pulse Resp BP Pulse Ox 98.8 F 58 L 18 158/89 95 07/26/19 12:00 07/26/19 12:00 07/26/19 12:00 07/26/19 12:00 07/26/19 12:00 - Additional Data Intake & Output - Last 24 hours: Intake & Output 07/24/19 07/25/19 07/26/19 07/27/19 05:59 05:59 05:59 05:59 Intake Total 4075 2920 4819 450 Output Total 1900 2847 3732 350 Balance 2175 73 1087 100 Weight 183 lb 1.6 oz 188 lb 14.4 oz 188 lb 3.2 oz 188 lb 3.2 oz - General physical appearance well developed, well nourished, no distress, no pain - Eyes PERRL, normal ocular movement - ENT normal pinna, normal nares, normal mucosa, no hearing loss, no congestion - Neck no masses, no bruits, trachea midline, no lymphadenopathy, no venous distension - Respiratory normal expansion, normal respiratory effort, clear to auscultation - Cardiovascular Cardiovascular exam: Present: normal rate and rhythm, RRR, +S1, +S2. Absent: JVD, tachycardia - Abdomen tender (mild incisional tenderness), wound (. Stoma is working nicely and appears healthy), distended (. No abdominal distention) - Integumentary no rash, no growths, no abnormal pigmentation - Neurologic normal coordination, normal sensation - Musculoskeletal normal gait, normal posture - Psychiatric oriented to time, oriented to person, oriented to place, speech is normal, memory intact - Labs 07/25/19 05:15 07/25/19 05:30 Assessment and Plan (1) Acute diverticulitis of intestine Status: Acute Assessment and plan: Patient is clinically improved. Discontinued. Walker catheter Reglan 10 mg IV every 6 hour l . Saline lock IV regular diet Current Visit: Yes (2) Hypothyroidism Status: Acute Current Visit: Yes (3) Osteoarthritis Status: Acute Current Visit: Yes - Time Spent With Patient Total time spent is greater than 50% in coordination of care (as documented) at patient's floor/unit and/or counseling patient:
[2019-07-26] MEDS: CIPROFLOXACIN 400 MG/200 ML BAG IV SCH ×2 (15:47→23:03)
[2019-07-27] MEDS: METOCLOPRAMIDE 10 MG/2 ML VIAL IV SCH ×3 (00:15→12:34)
[2019-07-27] MEDS: metroNIDAZOLE 500 MG/100 ML BAG IV SCH ×3 (00:15→12:34)
[2019-07-27] MEDS: 0.9 % SODIUM CHLORIDE 10 ML SYRINGE IV SCH (05:46)
[2019-07-27 06:29] LABS: Basophils # (Auto) 0.03 K/mcL (0.00-0.30); Basophils % (Auto) 0.5 % (0.0-2.0); Eosinophils # (Auto) 0.46 K/mcL (0.00-0.70); Eosinophils % (Auto) 8.1 % (0.0-7.0); Granulocytes % (Auto) 58.6 % (38.0-78.0); Hematocrit 34.1 % (40.1-51.0); Hemoglobin 11.2 g/dL (13.7-17.5); Lymphocytes # (Auto) 1.18 K/mcL (1.50-4.80); Lymphocytes % (Auto) 20.7 % (15.5-49.0); Mean Cell Volume 94.5 fL (80.0-100.0); Mean Corpuscular HGB Conc 32.8 g/dL (31.0-36.0); Mean Platelet Volume 8.9 fL (7.4-10.4); Monocytes # (Auto) 0.69 K/mcL (0.10-0.90); Monocytes % (Auto) 12.1 % (1.0-12.0); Platelet Count 365 K/mcL (140-440); RBC 3.61 M/mcL (4.63-6.08); WBC 5.7 K/mcL (4.50-11.00)
[2019-07-27 07:03] LABS: ALT/SGPT 13 U/l (0-40); AST/SGOT 22 U/l (0-37); Albumin 2.7 gm/dL (3.2-5.2); Albumin/Globulin Ratio 1.1 (1.0-2.3); Alkaline Phosphatase 68 U/L (39-117); Bilirubin,Direct < 0.2 mg/dL (0.0-0.3); Bilirubin,Total 0.3 mg/dL (0.0-1.0); Blood Urea Nitrogen 10 mg/dl (8-23); Calcium 8.3 mg/dl (8.6-10.4); Carbon Dioxide 24 mmol/L (22-30); Chloride 103 mmol/L (96-108); Globulin 2.5 gm/dL (2.2-3.7); Glucose 104 mg/dL (70-105); Lactate Dehydrogenase 197 U/L (94-250); Triglycerides 88 mg/dl (<150); Uric Acid 4.4 mg/dL (2.5-8.0)
[2019-07-27 07:15] LABS: Glomerular Filtration Rate 96; Phosphorous 3.4 mg/dL (2.7-4.5)
[2019-07-27] MEDS: PANTOPRAZOLE 40 MG VIAL IV SCH (08:27)
[2019-07-27] MEDS: LEVOTHYROXINE 100 MCG VIAL IV SCH (08:27)
[2019-07-27] MEDS: CIPROFLOXACIN 400 MG/200 ML BAG IV SCH (08:27)
--- NOTE | 2019-07-27 12:25 | Discharge Summary ---
Providers - Providers Patient information: Note initiated : 07/27/19 at 12:20 pm Service Date, if different from initiated Date: [] Patient: Joni Pedro 63 y/o M admitted on 07/21/19 for abdominal pain. Chief Complaint: [] Date of admission: 07/19/19 Discharge date: 07/27/19 Attending physician: Irineo Price Hospitalization Hospital Course: 63-year-old male admitted on August 01 with history of acute onset of left lower quadrant and suprapubic pain. Evaluation revealed an acute abdomen with leukocytosis. CT showed early diverticulitis in the mid sigmoid with a small amount of free air and some free fluid in the pelvis. He was treated with ciprofloxacin and metronidazole for 3 days and did not improve. He was switched to meropenem and metronidazole but still continued to have increasing pain.. A follow-up CT on 22 July showed a 6 cm abscess which was bilobed and increasing fluid in the pelvis and left gutter with more free air. He was explored urgently and was found to have a significant abscess of the pelvis involving the small bowel large intestines and Bladder. A segmental resection of the sigmoid colon was carried out with Greco's pouch and the pelvis and right gutter were drained. He had abdomen colostomy placed. He has done exceptionally well and has had early return of function of his stoma. He is now tolerating diet without difficulty and is having good stomal activity. He is afebrile and his drainage is serosanguineous. Cultures grew out primarily Escherichia coli which was sensitive to ciprofloxacin. Anaerobes have not been finalized and she had. He is clinically stable and will be discharged on ciprofloxacin and metronidazole. Discharge diagnosis: acute diverticulitis with perforation Secondary discharge diagnosis: Pelvic abscess due to diverticulitis Reason for admission: abdominal pain leukocytosis and perforated diverticulitis Procedures: Segmental sigmoid colectomy with left colostomy Pertinent studies/significant findings: CT of abdomen and pelvis with IV contrast 2 Exam Temp Pulse Resp BP Pulse Ox 98.2 F 66 18 118/74 96 07/27/19 12:00 07/27/19 12:00 07/27/19 12:00 07/27/19 12:00 07/27/19 12:00 - General physical appearance well developed, well nourished, no distress - Eyes PERRL, normal ocular movement - ENT normal pinna, normal nares, normal mucosa, no hearing loss, no congestion - Head Head exam IM: Present: atraumatic, normocephalic - Neck no masses, no bruits, trachea midline, no lymphadenopathy, no venous distension - Cardiovascular Cardiovascular exam IM: Present: normal rate and rhythm - Respiratory normal expansion, normal respiratory effort, clear to auscultation - Abdomen Abdomen: Present: soft, tender (moderate incisional tenderness. Incision is healing uneventfully), bowel sounds, surgical scars ( stoma is healthy and functioning appropriately), distended ( no abdominal distention) Hernia: Present: none - Genitourinary Present: normal penis with no external lesions - Rectum Rectum: Present: no masses - Integumentary Present: no rash, no growths, no abnormal pigmentation - Neurologic Present: normal coordination, normal sensation - Musculoskeletal Present: normal gait, normal posture - Psychiatric Present: oriented to time, oriented to person, oriented to place, speech is normal, memory intact Discharge Plan - Patient/Caregiver Discharge Instructions Activity: increase activity as tolerated Diet: Regular Diet Prescriptions: Ciprofloxacin [Cipro] 500 mg PO BID #40 tab Transmission Status: Pending to [facility] metroNIDAZOLE [Metronidazole] 500 mg PO Q8 #40 tab Transmission Status: Pending to [facility] - Follow up Plan Follow up with: Shonna Marquez ARNP [Primary Care Provider] - Irineo Price MD [Physician] - Disposition: Home, Self-Care Care Plan Goals: This discharge packet is provided to you to help keep you informed about your care. We want to ensure you get everything you need when you go home. You will also be receiving a call from us in a few days to follow up with you and see how you are doing since your discharge. This gives us a chance to listen to any concerns you maybe experiencing since you were discharged or any additional needs you may have, as well as providing us feedback on your care experience. We strive to always provide excellent care and thank you for your feedback and for choosing [facility]. Prognosis: Good Rehab Potential: Good I certify that the patient requires SNF services.: No Overall status at discharge: patient is progressing back to baseline Pending Studies Resuscitation Status Full Code Diet Regular Diet Start WedJuly 25 1436 Alprazolam (Xanax) 1 mg PO HSP PRN PRN Reason: Insomnia Last Admin: 07/25/19 21:03 Dose: 1 mg Documented by: Admin: 07/24/19 20:42 Dose: 1 mg Documented by: CINDY Benzocaine (Cetacaine) 1 spray TOPICAL PRN PRN PRN Reason: Sore Throat Last Admin: 07/24/19 21:05 Dose: 1 spray Documented by: Admin: 07/24/19 13:25 Dose: 1 spray Documented by: LISBETH Hydromorphone HCl (Dilaudid) 0.5 mg IV Q2HP PRN; Protocol PRN Reason: Per Pain Protocol Last Admin: 07/24/19 05:32 Dose: 0.5 mg Documented by: Admin: 07/23/19 23:40 Dose: 0.5 mg Documented by: MELINDA Metronidazole (Flagyl) 500 mg in 100 mls @ 100 mls/hr IV Q6H [facility]; Protocol Last Admin: 07/27/19 05:46 Dose: 100 mls/hr Documented by: Infusion: 07/27/19 01:15 Dose: 100 mls/hr Documented by: Admin: 07/27/19 00:15 Dose: 100 mls/hr Documented by: Infusion: 07/26/19 18:57 Dose: 100 mls/hr Documented by: Admin: 07/26/19 17:57 Dose: 100 mls/hr Documented by: [email or web address] Infusion: 07/26/19 13:11 Dose: 0 mls/hr Documented by: Admin: 07/26/19 12:11 Dose: 100 mls/hr Documented by: Infusion: 07/26/19 06:52 Dose: 0 mls/hr Documented by: Admin: 07/26/19 05:52 Dose: 100 mls/hr Documented by: Infusion: 07/26/19 00:42 Dose: 0 mls/hr Documented by: Admin: 07/25/19 23:42 Dose: 100 mls/hr Documented by: Infusion: 07/25/19 18:04 Dose: 0 mls/hr Documented by: Admin: 07/25/19 17:04 Dose: 100 mls/hr Documented by: Infusion: 07/25/19 13:51 Dose: 0 mls/hr Documented by: Admin: 07/25/19 12:51 Dose: 100 mls/hr Documented by: Infusion: 07/25/19 06:40 Dose: 0 mls/hr Documented by: Admin: 07/25/19 05:40 Dose: 100 mls/hr Documented by: Infusion: 07/25/19 00:40 Dose: 0 mls/hr Documented by: Admin: 07/24/19 23:27 Dose: 100 mls/hr Documented by: Infusion: 07/24/19 18:50 Dose: 0 mls/hr Documented by: Admin: 07/24/19 17:35 Dose: 100 mls/hr Documented by: Infusion: 07/24/19 12:14 Dose: 0 mls/hr Documented by: Admin: 07/24/19 11:14 Dose: 100 mls/hr Documented by: Infusion: 07/24/19 06:32 Dose: 0 mls/hr Documented by: Admin: 07/24/19 05:32 Dose: 100 mls/hr Documented by: Infusion: 07/24/19 00:40 Dose: 0 mls/hr Documented by: Admin: 07/23/19 23:40 Dose: 100 mls/hr Documented by: MELINDA Acetaminophen (Ofirmev) 1,000 mg in 100 mls @ 200 mls/hr IV Q6HP PRN; Protocol PRN Reason: Fever Last Infusion: 07/24/19 06:06 Dose: 0 mls/hr Documented by: Admin: 07/24/19 05:31 Dose: 200 mls/hr Documented by: Infusion: 07/23/19 22:15 Dose: 0 mls/hr Documented by: Admin: 07/23/19 21:41 Dose: 200 mls/hr Documented by: MELINDA Ciprofloxacin (Cipro) 400 mg in 200 mls @ 200 mls/hr IV Q12H [facility]; Protocol Last Admin: 07/27/19 08:27 Dose: 200 mls/hr Documented by: Infusion: 07/27/19 00:05 Dose: 0 mls/hr Documented by: Admin: 07/26/19 23:03 Dose: 200 mls/hr Documented by: Infusion: 07/26/19 16:50 Dose: 0 mls/hr Documented by: Admin: 07/26/19 15:47 Dose: 200 mls/hr Documented by: MISSAEL Ketorolac Tromethamine (Toradol) 30 mg IV Q6HP PRN PRN Reason: PAIN/FEVER > 101 Last Admin: 07/24/19 23:26 Dose: 30 mg Documented by: Admin: 07/24/19 17:36 Dose: 30 mg Documented by: LISBETH Levothyroxine Sodium (Synthroid) 125 mcg IV Q[facility]AC [facility] Last Admin: 07/27/19 08:27 Dose: 125 mcg Documented by: Admin: 07/26/19 07:43 Dose: 125 mcg Documented by: Admin: 07/25/19 07:56 Dose: 125 mcg Documented by: Admin: 07/24/19 08:03 Dose: 125 mcg Documented by: LISBETH Metoclopramide HCl (Reglan) 10 mg IV Q6 [facility] Last Admin: 07/27/19 05:46 Dose: 10 mg Documented by: Admin: 07/27/19 00:15 Dose: 10 mg Documented by: Admin: 07/26/19 17:57 Dose: 10 mg Documented by: Admin: 07/26/19 14:09 Dose: 10 mg Documented by: Admin: 07/26/19 05:52 Dose: 10 mg Documented by: Admin: 07/25/19 23:42 Dose: 10 mg Documented by: Admin: 07/25/19 17:04 Dose: 10 mg Documented by: Admin: 07/25/19 12:51 Dose: 10 mg Documented by: Admin: 07/25/19 05:40 Dose: 10 mg Documented by: Admin: 07/24/19 23:26 Dose: 10 mg Documented by: Admin: 07/24/19 17:36 Dose: 10 mg Documented by: LISBETH Pantoprazole Sodium (Protonix) 40 mg IV Q12H [facility] Last Admin: 07/27/19 08:27 Dose: 40 mg Documented by: Admin: 07/26/19 21:31 Dose: 40 mg Documented by: Admin: 07/26/19 07:43 Dose: 40 mg Documented by: Admin: 07/25/19 21:02 Dose: 40 mg Documented by: Admin: 07/25/19 09:41 Dose: 40 mg Documented by: Admin: 07/24/19 20:42 Dose: 40 mg Documented by: Admin: 07/24/19 09:37 Dose: 40 mg Documented by: Admin: 07/23/19 21:32 Dose: 40 mg Documented by: MELINDA Sodium Chloride (Saline Flush) 10 ml IV Q8 [facility] Admin: 07/27/19 05:46 Dose: 10 ml Documented by: Admin: 07/26/19 21:36 Dose: 10 ml Documented by: Admin: 07/26/19 14:31 Dose: Not Given Documented by: Admin: 07/26/19 05:53 Dose: 10 ml Documented by: Admin: 07/25/19 21:02 Dose: 10 ml Documented by: Admin: 07/25/19 14:04 Dose: Not Given Documented by: Admin: 07/25/19 05:41 Dose: 10 ml Documented by: Admin: 07/24/19 20:42 Dose: Not Given Documented by: Admin: 07/24/19 13:18 Dose: Not Given Documented by: [email or web address] Admin: 07/24/19 06:05 Dose: 10 ml Documented by: Admin: 07/23/19 21:33 Dose: 10 ml Documented by: MELINDA Shift Summary 07/27/19 04:34 Shift Summary by Estephania De Dios Pt slept most of the night. Up ad hailee in room, using urinal at bedside. NEMESIO drains putting out serous & serosanguenous drainage. Gave pt introduction on draining NEMESIO drains. Colostomy putting out small amounts of stool, plenty of flatus. Pt has been releasing gas from bag on own. Tolerated Reg diet last night w/o nausea. Plan is for him to d/c home today. Initialized on 07/27/19 04:34 - END OF NOTE
== END 2019-07-27 13:15 | disposition home or self-care (01) | DRG 329 ==
LOC: ED 19:52 → MEDSUR 19:52
PROVIDERS: ADMIT Family Medicine Adult Medicine; ATTEND Family Medicine Adult Medicine

== ENCOUNTER 2019-11-10 05:02 | Inpatient (IN) ==
--- NOTE | 2019-11-03 10:21 | XRay Report ---
INDICATION: Pre-Op TECHNIQUE: PA and lateral upright chest x-ray COMPARISON: None FINDINGS: Lungs: Lungs are negative. No focal pulmonary parenchymal infiltrate or mass Heart, vascular: No significant cardiomegaly. Pulmonary vascularity is normal. No pulmonary edema or pulmonary congestion Mediastinum, tomás: No mediastinal widening. No hilar mass Pleura:No pleural fluid. No pleural-based mass or calcification Thoracic spine, ribs: No thoracic compression fracture. Ribs are negative. No fracture. No lytic lesion IMPRESSION: Negative PA and lateral chest x-ray Interpreted and Authenticated by: Glenn Kruse 11/03/19
[2019-11-03 12:01] LABS: Basophils # (Auto) 0.04 K/mcL (0.00-0.30); Eosinophils # (Auto) 0.12 K/mcL (0.00-0.70); Granulocytes % (Auto) 49.5 % (38.0-78.0); Hematocrit 40.1 % (40.1-51.0); Hemoglobin 13.3 g/dL (13.7-17.5); Lymphocytes # (Auto) 1.52 K/mcL (1.50-4.80); Lymphocytes % (Auto) 38.6 % (15.5-49.0); Mean Cell Volume 94.4 fL (80.0-100.0); Mean Corpuscular HGB Conc 33.2 g/dL (31.0-36.0); Mean Platelet Volume 8.7 fL (7.4-10.4); Monocytes # (Auto) 0.31 K/mcL (0.10-0.90); Monocytes % (Auto) 7.9 % (1.0-12.0); Platelet Count 314 K/mcL (140-440); RBC 4.25 M/mcL (4.63-6.08); Red Cell Distribution Width 12.7 % (11.5-14.5); WBC 3.9 K/mcL (4.50-11.00)
[2019-11-03 12:30] LABS: ALT/SGPT 20 U/l (0-40); AST/SGOT 31 U/l (0-37); Albumin 4.5 gm/dL (3.2-5.2); Albumin/Globulin Ratio 1.6 (1.0-2.3); Alkaline Phosphatase 63 U/L (39-117); Bilirubin,Total 0.2 mg/dL (0.0-1.0); Blood Urea Nitrogen 15 mg/dl (8-23); Calcium 9.2 mg/dl (8.6-10.4); Carbon Dioxide 27 mmol/L (22-30); Chloride 106 mmol/L (96-108); Globulin 2.9 gm/dL (2.2-3.7); Glomerular Filtration Rate 80; Glucose 84 mg/dL (70-105)
[2019-11-03 12:47] LABS: INR 0.9 (0.9-1.1); Prothrombin Time 12.4 sec (11.9-14.5)
[~2019-11-10 05:02] MED LIST: IPRATROPIUM/ALBUTEROL 3 ML AMPUL.NEB NEB PRN; SCOPOLAMINE 1 PATCH PATCH TOPICAL PRN
[2019-11-10] MEDS ORDERED: LEVOFLOXACIN 750 MG/150 ML BAG IV SCH ×3 (06:00→11:32)
[2019-11-10] MEDS ORDERED: metroNIDAZOLE 500 MG/100 ML BAG IV SCH ×4 (06:00→12:00)
[2019-11-10] MEDS ORDERED: MAGNESIUM SULFATE 2 GM/50 ML BAG IV ONE ×3 (07:19→11:32)
[2019-11-10] MEDS ORDERED: PROPOFOL 200 MG/20 ML VIAL IV ONE (07:32)
[2019-11-10] MEDS ORDERED: DEXAMETHASONE 10 MG/ML VIAL ONE (07:32)
[2019-11-10] MEDS ORDERED: ROPIVACAINE HCL/PF 30 ML VIAL IJ ONE (07:32)
[2019-11-10] MEDS ORDERED: fentaNYL 100 MCG/2 ML VIAL IV ONE (07:32)
[2019-11-10] MEDS ORDERED: GLYCOPYRROLATE 0.2 MG/ML VIAL IV ONE (07:32)
[2019-11-10] MEDS ORDERED: ROCURONIUM 10 MG/ML ML IV ONE (07:32)
[2019-11-10] MEDS ORDERED: ONDANSETRON 4 MG/2 ML VIAL ONE (07:32)
[2019-11-10] MEDS ORDERED: SUGAMMADEX SODIUM 200 MG/2 ML VIAL IV ONE (07:32)
[2019-11-10] MEDS ORDERED: PHENYLEPHRINE 10 MG/ML VIAL ONE (07:32)
[2019-11-10] MEDS ORDERED: LIDOCAINE HCL/PF 100 MG/5 ML SYRINGE IV ONE (07:32)
--- NOTE | 2019-11-10 10:11 | Brief Operative Note ---
Brief Operative Note Date of procedure: 11/10/19 Pre-op diagnosis: colostomy status Post-op diagnosis: other (colostomy status) Procedure: COLOSTOMY STATUS Grafts/Implants: No (JOYCE DRAIN X1) Anesthesia: GETA Findings: WELL HEALED PERITONEUM, FEW ADHESIONS Complications: none Surgeon: Irineo Price Estimated blood loss (cc): 25 Specimens Removed/Pathology: other (STOMA END) Condition: stable Disposition: PACU
[2019-11-10] MEDS ORDERED: KETOROLAC 15 MG/ML VIAL IV PRN ×2 (10:15→11:32)
[2019-11-10] MEDS ORDERED: ONDANSETRON 4 MG/2 ML VIAL IV PRN ×4 (10:15→11:32)
[2019-11-10] MEDS ORDERED: METHOCARBAMOL 1,000 MG/10 ML VIAL IV PRN ×2 (10:15→11:32)
[2019-11-10] MEDS ORDERED: IPRATROPIUM/ALBUTEROL 3 ML AMPUL.NEB NEB PRN ×2 (10:15→11:32)
[2019-11-10] MEDS ORDERED: LACTATED RINGERS 1,000 ML IV SCH ×2 (10:15→11:32)
[2019-11-10] MEDS ORDERED: MEPERIDINE 25 MG/ML SYRINGE IV PRN ×2 (10:15→11:32)
[2019-11-10] MEDS ORDERED: 0.9 % SODIUM CHLORIDE 1,000 ML IV SCH (10:15)
[2019-11-10] MEDS ORDERED: ACETAMINOPHEN 1,000 MG/100 ML BOTTLE IV ONE (10:15)
[2019-11-10] MEDS ORDERED: LORazepam 2 MG/ML VIAL IV PRN ×2 (10:22→11:32)
[2019-11-10] MEDS ORDERED: PROMETHAZINE 25 MG/ML VIAL IV PRN ×2 (10:22→11:32)
[2019-11-10] MEDS: fentaNYL 100 MCG/2 ML VIAL IV PRN ×2 (10:29→10:40)
[2019-11-10] MEDS ORDERED: HYDROmorphone 1 MG/ML SYRINGE IV PRN (11:04)
[2019-11-10] MEDS ORDERED: fentaNYL 100 MCG/2 ML VIAL IV PRN (11:32)
[2019-11-10] MEDS: HYDROmorphone 1 MG/ML SYRINGE IV PRN (11:50)
[2019-11-10] MEDS: 0.9 % SODIUM CHLORIDE 1,000 ML IV SCH ×3 (11:52→22:30)
[2019-11-10] MEDS ORDERED: METOCLOPRAMIDE 10 MG/2 ML VIAL IV SCH (12:00)
[2019-11-10] MEDS: METOCLOPRAMIDE 10 MG/2 ML VIAL IV SCH ×3 (12:20→23:47)
[2019-11-10] MEDS: metroNIDAZOLE 500 MG/100 ML BAG IV SCH ×3 (12:21→23:47)
[2019-11-10] MEDS: 0.9 % SODIUM CHLORIDE 10 ML SYRINGE IV SCH ×2 (12:26→21:07)
[2019-11-10] MEDS ORDERED: 0.9 % SODIUM CHLORIDE 10 ML SYRINGE IV SCH (14:00)
[2019-11-10] MEDS ORDERED: ACETAMINOPHEN 1,000 MG/100 ML BOTTLE IV SCH (16:30)
[2019-11-10] MEDS: ACETAMINOPHEN 1,000 MG/100 ML BOTTLE IV SCH ×2 (16:34→22:30)
[2019-11-10] MEDS: PANTOPRAZOLE 40 MG VIAL IV SCH (16:39)
[2019-11-10] MEDS ORDERED: PANTOPRAZOLE 40 MG VIAL IV SCH (17:00)
[2019-11-10] MEDS: KETOROLAC 30 MG/ML VIAL IV SCH ×2 (17:48→23:47)
[2019-11-11] MEDS: ACETAMINOPHEN 1,000 MG/100 ML BOTTLE IV SCH ×2 (04:07→11:16)
[2019-11-11] MEDS: 0.9 % SODIUM CHLORIDE 1,000 ML IV SCH ×4 (04:25→22:00)
[2019-11-11] MEDS: 0.9 % SODIUM CHLORIDE 10 ML SYRINGE IV SCH ×3 (04:26→20:40)
[2019-11-11] MEDS: KETOROLAC 30 MG/ML VIAL IV SCH ×4 (06:09→23:55)
[2019-11-11] MEDS: METOCLOPRAMIDE 10 MG/2 ML VIAL IV SCH ×4 (06:10→23:50)
[2019-11-11] MEDS: metroNIDAZOLE 500 MG/100 ML BAG IV SCH ×4 (06:10→23:55)
[2019-11-11 07:32] LABS: Basophils # (Auto) 0.02 K/mcL (0.00-0.30); Basophils % (Auto) 0.2 % (0.0-2.0); Eosinophils # (Auto) 0.02 K/mcL (0.00-0.70); Eosinophils % (Auto) 0.2 % (0.0-7.0); Granulocytes % (Auto) 73.7 % (38.0-78.0); Hematocrit 36.7 % (40.1-51.0); Hemoglobin 11.9 g/dL (13.7-17.5); Lymphocytes % (Auto) 16.6 % (15.5-49.0); Mean Cell Volume 96.8 fL (80.0-100.0); Mean Corpuscular HGB Conc 32.4 g/dL (31.0-36.0); Mean Platelet Volume 8.8 fL (7.4-10.4); Monocytes # (Auto) 0.78 K/mcL (0.10-0.90); Monocytes % (Auto) 9.3 % (1.0-12.0); Platelet Count 225 K/mcL (140-440); RBC 3.79 M/mcL (4.63-6.08); Red Cell Distribution Width 12.3 % (11.5-14.5); WBC 8.4 K/mcL (4.50-11.00)
[2019-11-11 07:43] LABS: ALT/SGPT 14 U/l (0-40); AST/SGOT 17 U/l (0-37); Albumin 3.4 gm/dL (3.2-5.2); Alkaline Phosphatase 51 U/L (39-117); Bilirubin,Direct < 0.2 mg/dL (0.0-0.3); Bilirubin,Total 0.6 mg/dL (0.0-1.0); Blood Urea Nitrogen 18 mg/dl (8-23); Calcium 8.4 mg/dl (8.6-10.4); Chloride 101 mmol/L (96-108); Glomerular Filtration Rate 80; Glucose 84 mg/dL (70-105); Lactate Dehydrogenase 158 U/L (94-250); Phosphorous 3.7 mg/dL (2.7-4.5); Triglycerides 74 mg/dl (<150); Uric Acid 6.1 mg/dL (2.5-8.0)
[2019-11-11 07:46] LABS: Albumin/Globulin Ratio 1.4 (1.0-2.3); Carbon Dioxide 20 mmol/L (22-30); Globulin 2.4 gm/dL (2.2-3.7)
[2019-11-11] MEDS: PANTOPRAZOLE 40 MG VIAL IV SCH ×2 (08:23→17:07)
[2019-11-11] MEDS ORDERED: LEVOFLOXACIN 750 MG/150 ML BAG IV SCH (09:00)
[2019-11-11] MEDS: LEVOFLOXACIN 750 MG/150 ML BAG IV SCH (09:38)
--- NOTE | 2019-11-11 14:07 | General Surgery Progress Note ---
SUBJECTIVE Subjective Patient information: Note initiated : 11/11/19 at 2:01 pm Service Date, if different from initiated Date: [] Patient: Joni Pedro 64 y/o M admitted on 11/10/19 for Colostomy Takedown. Chief Complaint: [] Principal diagnosis: postop colostomy takedown Interval history: patient states that he feels well. He has been afebrile. His white blood count is 8.4, hemoglobin 11.9, hematocrit 36.7. Inpatient panel is normal. Patient states that he had flatus. He denies nausea. Constitutional Vitals: Vital Signs Temp Pulse Resp BP Pulse Ox 98.3 F 70 16 127/81 97 11/11/19 11:42 11/11/19 11:42 11/11/19 11:42 11/11/19 11:42 11/11/19 11:42 Period Temp Pulse Resp BP Sys/Zelaya Pulse Ox Last 24 Hr 97.5 F-98.6 F 61-76 16-18 124-138/66-81 96-99 Intake and Output 11/11/19 11/11/19 11/11/19 05:59 13:59 21:59 Intake Total 330 1350 Output Total 775 250 Balance -445 1100 Weight 174 lb 11.2 oz Patient Weight 11/12/19 05:59 Weight 174 lb 11.2 oz Intake & Output: Intake & Output 11/11/19 11/11/19 11/11/19 05:59 13:59 21:59 Intake Total 330 1350 Output Total 775 250 Balance -445 1100 Weight 174 lb 11.2 oz Intake: IV 300 1350 Sodium Chloride 0.9% 1,000 ml @ 1000 125 mls/hr IV .Q8H [facility] Rx#: [id number] Oral 30 Output: Gastric Drainage 250 250 Right Nare NG/OG 250 250 Drainage 25 Right Lower Abdomen NEMESIO Drain 25 Urine Catheter Amount 500 Other: Urine Appearance Clear Clear Uretheral (Walker) Clear Urine Color Light Sophy Dark Yellow Light Sophy Uretheral (Walker) Straw Urine Odor Normal Normal Uretheral (Walker) Normal Head Head exam: Present atraumatic, normal inspection and normocephalic Eye Eye exam: Present EOMI Pupils: Present normal accommodation and PERRL ENT ENT exam: Present mucous membranes moist and normal oropharynx Neck Neck exam: Present full ROM; Absent lymphadenopathy and tenderness Respiratory Respiratory exam: Present normal respiratory exam and CTAB; Absent rales, rhonchi and wheezes Cardiovascular Cardiovascular exam: Present normal rate and rhythm, RRR, +S1 and +S2; Absent JVD and tachycardia GI/Abdominal GI/Abdominal exam: Present soft, hyperactive bowel sounds and tenderness (mild incisional tenderness); Absent distended Additional comments: mild bloody drainage of incision; Mejia drain serosanguineous fluid Extremities Exam Extremities exam: Present full ROM and neurovascular intact; Absent pedal edema Back Exam Back exam: Present full ROM and normal inspection Neurological Exam Neurological exam: Present alert, CN II-XII intact and oriented X3; Absent motor sensory deficit Psychiatric Psychiatric exam: Present normal affect and normal mood A/P Assessment and plan (1) Colostomy status: Status: Acute Narrative A/P Narrative: patient is clinically stable; discontinue Walker catheter Change dressing as needed Out of bed 3 times daily with assistance Pantoprazole twice a day Time Spent With Patient Time: Total time spent is greater than 50% in coordination of care (as documented) at patient's floor/unit and/or counseling patient:
[2019-11-11] MEDS: HYDROmorphone 1 MG/ML SYRINGE IV PRN ×2 (14:32→19:20)
[2019-11-11] MEDS: BENZOCAINE 1 SPRAY BOTTLE TOPICAL PRN (15:23)
[2019-11-11] MEDS ORDERED: PANTOPRAZOLE 40 MG VIAL IV SCH (17:00)
[2019-11-12] MEDS: HYDROmorphone 1 MG/ML SYRINGE IV PRN ×2 (04:21→16:20)
[2019-11-12] MEDS: 0.9 % SODIUM CHLORIDE 10 ML SYRINGE IV SCH ×3 (04:24→22:25)
[2019-11-12] MEDS: 0.9 % SODIUM CHLORIDE 1,000 ML IV SCH ×3 (05:11→19:55)
[2019-11-12] MEDS: metroNIDAZOLE 500 MG/100 ML BAG IV SCH ×3 (06:09→18:04)
[2019-11-12] MEDS: KETOROLAC 30 MG/ML VIAL IV SCH ×3 (06:09→17:59)
[2019-11-12] MEDS: METOCLOPRAMIDE 10 MG/2 ML VIAL IV SCH ×3 (06:09→17:51)
[2019-11-12 06:55] LABS: Basophils # (Auto) 0.03 K/mcL (0.00-0.30); Basophils % (Auto) 0.4 % (0.0-2.0); Eosinophils # (Auto) 0.28 K/mcL (0.00-0.70); Eosinophils % (Auto) 3.8 % (0.0-7.0); Granulocytes % (Auto) 73.8 % (38.0-78.0); Hematocrit 34.3 % (40.1-51.0); Hemoglobin 11.4 g/dL (13.7-17.5); Lymphocytes # (Auto) 1.15 K/mcL (1.50-4.80); Lymphocytes % (Auto) 15.6 % (15.5-49.0); Mean Cell Volume 96.3 fL (80.0-100.0); Mean Corpuscular HGB Conc 33.2 g/dL (31.0-36.0); Mean Platelet Volume 8.8 fL (7.4-10.4); Monocytes # (Auto) 0.47 K/mcL (0.10-0.90); Monocytes % (Auto) 6.4 % (1.0-12.0); Platelet Count 204 K/mcL (140-440); RBC 3.56 M/mcL (4.63-6.08); WBC 7.4 K/mcL (4.50-11.00)
[2019-11-12 07:14] LABS: ALT/SGPT 10 U/l (0-40); AST/SGOT 13 U/l (0-37); Albumin 3.2 gm/dL (3.2-5.2); Albumin/Globulin Ratio 1.4 (1.0-2.3); Alkaline Phosphatase 43 U/L (39-117); Bilirubin,Direct < 0.2 mg/dL (0.0-0.3); Bilirubin,Total 0.4 mg/dL (0.0-1.0); Blood Urea Nitrogen 18 mg/dl (8-23); Calcium 8.8 mg/dl (8.6-10.4); Carbon Dioxide 19 mmol/L (22-30); Chloride 107 mmol/L (96-108); Globulin 2.3 gm/dL (2.2-3.7); Glomerular Filtration Rate 96; Glucose 69 mg/dL (70-105); Lactate Dehydrogenase 113 U/L (94-250); Triglycerides 93 mg/dl (<150); Uric Acid 6.2 mg/dL (2.5-8.0)
[2019-11-12 07:16] LABS: Phosphorous 2.5 mg/dL (2.7-4.5)
[2019-11-12] MEDS: PANTOPRAZOLE 40 MG VIAL IV SCH ×2 (07:27→17:51)
[2019-11-12] MEDS: LEVOFLOXACIN 750 MG/150 ML BAG IV SCH (09:45)
--- NOTE | 2019-11-12 12:50 | General Surgery Progress Note ---
SUBJECTIVE Subjective Patient information: Note initiated : 11/12/19 at 12:48 pm Service Date, if different from initiated Date: [] Patient: Joni Pedro 64 y/o M admitted on 11/10/19 for Colostomy Takedown. Chief Complaint: [] Principal diagnosis: postop colostomy takedown Interval history: patient states that he stable except for headache from probable having withdrawal. He drinks 6+ cups of coffee per day. He denies nausea. He is not had as much flatus though he feels some crampy abdominal pain. He denies nausea.platelet count 7.4, hemoglobin 11.4, hematocrit 34.3, inpatient panel normal. Patient is fully oriented and has no findings suggestive of alcohol withdrawal. He states that he last drank alcohol about a week before he had his surgery. He states that he can go weeks without drinking without having withdrawal symptoms Constitutional Vitals: Vital Signs Temp Pulse Resp BP Pulse Ox 97.3 F 65 20 135/81 94 11/12/19 11:27 11/12/19 11:27 11/12/19 11:27 11/12/19 11:27 11/12/19 11:27 Period Temp Pulse Resp BP Sys/Zelaya Pulse Ox Last 24 Hr 97.3 F-98.3 F 60-72 16-20 118-139/72-83 94-98 Intake and Output 11/11/19 11/12/19 11/12/19 21:59 05:59 13:59 Intake Total 8206 938 9910 Output Total 294 716 4073 Balance 1090 -340 -50 Weight 174 lb Intake & Output: Intake & Output 11/11/19 11/12/19 11/12/19 21:59 05:59 13:59 Intake Total 1258 392 7121 Output Total 564 298 5595 Balance 1090 -340 -50 Weight 174 lb Intake: IV 3761 736 6287 Sodium Chloride 0.9% 1,000 ml @ 1000 1000 125 mls/hr IV .Q8H [facility] Rx#: [id number] Oral 30 Tube Feeding 0 Output: Gastric Drainage 50 150 850 Right Nare NG/OG 50 150 850 Drainage 60 Right Lower Abdomen NEMESIO Drain 60 Drainage 20 Right Lower Abdomen NEMESIO Drain 20 Void Amount 300 300 Other: Urine Appearance Clear Clear Urine Color Light Sophy Dark Sophy Urine Odor Normal Head Head exam: Present atraumatic, normal inspection and normocephalic Eye Eye exam: Present EOMI Pupils: Present normal accommodation and PERRL ENT ENT exam: Present mucous membranes moist and normal oropharynx Neck Neck exam: Present full ROM; Absent lymphadenopathy and tenderness Respiratory Respiratory exam: Present normal respiratory exam and CTAB; Absent rales, rhonchi and wheezes Cardiovascular Cardiovascular exam: Present normal rate and rhythm, RRR, +S1 and +S2; Absent JVD and tachycardia GI/Abdominal GI/Abdominal exam: Present soft, hyperactive bowel sounds and tenderness (mild incisional tenderness); Absent distended Additional comments: mild bloody drainage of incision; Mejia drain seros anguineous fluid Extremities Exam Extremities exam: Present full ROM and neurovascular intact; Absent pedal edema Back Exam Back exam: Present full ROM and normal inspection Neurological Exam Neurological exam: Present alert, CN II-XII intact and oriented X3; Absent motor sensory deficit Psychiatric Psychiatric exam: Present normal affect and normal mood A/P Assessment and plan (1) Colostomy status: Status: Acute (2) Hypothyroidism: Status: Acute Qualifiers: Hypothyroidism type: acquired Qualified Code(s): E03.9 - Hypothyroidism, unspecified Narrative A/P Narrative: nasogastric tube to be clamped Abdominal x-rays in the morning fioricet every 6 hours when necessary headache Time Spent With Patient Time: Total time spent is greater than 50% in coordination of care (as documented) at patient's floor/unit and/or counseling patient:
[2019-11-12] MEDS ORDERED: BUTALB/ACETAMINOPHEN/CAFFEINE 1 TABLET PO PRN (12:58)
[2019-11-12] MEDS: BENZOCAINE 1 SPRAY BOTTLE TOPICAL PRN (22:25)
[2019-11-13] MEDS: METOCLOPRAMIDE 10 MG/2 ML VIAL IV SCH ×5 (00:02→23:52)
[2019-11-13] MEDS: KETOROLAC 30 MG/ML VIAL IV SCH ×5 (00:02→23:52)
[2019-11-13] MEDS: metroNIDAZOLE 500 MG/100 ML BAG IV SCH ×5 (00:02→23:52)
[2019-11-13] MEDS: 0.9 % SODIUM CHLORIDE 1,000 ML IV SCH ×3 (00:11→15:58)
[2019-11-13] MEDS: 0.9 % SODIUM CHLORIDE 10 ML SYRINGE IV SCH ×3 (05:52→23:53)
[2019-11-13 06:52] LABS: Basophils # (Auto) 0.03 K/mcL (0.00-0.30); Basophils % (Auto) 0.5 % (0.0-2.0); Eosinophils # (Auto) 0.52 K/mcL (0.00-0.70); Eosinophils % (Auto) 8.2 % (0.0-7.0); Granulocytes % (Auto) 65.1 % (38.0-78.0); Hematocrit 32.6 % (40.1-51.0); Hemoglobin 10.7 g/dL (13.7-17.5); Lymphocytes # (Auto) 1.16 K/mcL (1.50-4.80); Lymphocytes % (Auto) 18.3 % (15.5-49.0); Mean Cell Volume 95.6 fL (80.0-100.0); Mean Corpuscular HGB Conc 32.8 g/dL (31.0-36.0); Mean Platelet Volume 8.9 fL (7.4-10.4); Monocytes % (Auto) 7.9 % (1.0-12.0); Platelet Count 198 K/mcL (140-440); RBC 3.41 M/mcL (4.63-6.08); Red Cell Distribution Width 11.9 % (11.5-14.5); WBC 6.4 K/mcL (4.50-11.00)
[2019-11-13] MEDS: PANTOPRAZOLE 40 MG VIAL IV SCH ×2 (07:04→18:22)
[2019-11-13 07:50] LABS: ALT/SGPT 10 U/l (0-40); AST/SGOT 14 U/l (0-37); Albumin/Globulin Ratio 1.2 (1.0-2.3); Alkaline Phosphatase 43 U/L (39-117); Bilirubin,Direct < 0.2 mg/dL (0.0-0.3); Bilirubin,Total 0.4 mg/dL (0.0-1.0); Blood Urea Nitrogen 10 mg/dl (8-23); Calcium 8.8 mg/dl (8.6-10.4); Carbon Dioxide 18 mmol/L (22-30); Chloride 104 mmol/L (96-108); Globulin 2.5 gm/dL (2.2-3.7); Glomerular Filtration Rate 96; Glucose 68 mg/dL (70-105); Lactate Dehydrogenase 112 U/L (94-250); Triglycerides 86 mg/dl (<150); Uric Acid 7.2 mg/dL (2.5-8.0)
[2019-11-13 07:53] LABS: Phosphorous 2.2 mg/dL (2.7-4.5)
--- NOTE | 2019-11-13 08:28 | XRay Report ---
CLINICAL INFORMATION: Follow-up mid small bowel obstruction COMPARISON: 07/24/2019 FINDINGS: NG tube overlies the gastric antrum. Stomach, small and large bowel are decompressed with minimal gas in the colon and small bowel. Small amount of postoperative free air seen in the subdiaphragmatic region - as expected. IMPRESSION: Mild postoperative ileus. No evidence of bowel obstruction Interpreted and Authenticated by: Glenn Hunter 11/13/19
[2019-11-13] MEDS: LEVOFLOXACIN 750 MG/150 ML BAG IV SCH (10:16)
--- NOTE | 2019-11-13 13:08 | General Surgery Progress Note ---
SUBJECTIVE Subjective Patient information: Note initiated : 11/13/19 at 1:07 pm Service Date, if different from initiated Date: [] Patient: Joni Pedro 64 y/o M admitted on 11/10/19 for Colostomy Takedown. Chief Complaint: [] Principal diagnosis: postop colostomy takedown Interval history: patient is doing well. He had some multiple episodes of flatus last evening and he's had at least 4 small bowel movements since yes terday. His pain is controlled. He denies nausea.white blood count 6.4, hemoglobin 10.7, hematocrit 32.6, magnesium 1.5, phosphorus 2.2, potassium 3.9. Constitutional Vitals: Vital Signs Temp Pulse Resp BP Pulse Ox 97.9 F 65 18 131/79 98 11/13/19 08:00 11/13/19 08:00 11/13/19 08:00 11/13/19 08:00 11/13/19 08:00 Period Temp Pulse Resp BP Sys/Zelaya Pulse Ox Last 24 Hr 97.9 F-99 F 62-74 16-20 131-153/74-85 97-98 Intake and Output 11/12/19 11/13/19 11/13/19 21:59 05:59 13:59 Intake Total 1100 1100 250 Output Total 590 985 Balance 510 115 250 Weight 174 lb Intake & Output: Intake & Output 11/12/19 11/13/19 11/13/19 21:59 05:59 13:59 Intake Total 1100 1100 250 Output Total 590 985 Balance 510 115 250 Weight 174 lb Intake: IV 1100 1100 150 Sodium Chloride 0.9% 1,000 ml @ 1000 1000 125 mls/hr IV .[facility]8H [facility] Rx#: [id number] Oral 100 Output: Gastric Drainage 190 0 Right Nare NG/OG 190 0 Drainage 15 Right Lower Abdomen NEMESIO Drain 15 Drainage 20 Right Lower Abdomen NEMESIO Drain 20 Void Amount 400 950 Other: Urine Appearance Clear Urine Color Bright Yellow Urine Odor Normal Stool Size Smear Moderate Stool Color Brown Brown Yellow Stool Consistency Liquid Loose Loose # Bowel Movements 1 1 Head Head exam: Present atraumatic, normal inspection and normocephalic Eye Eye exam: Present EOMI Pupils: Present normal accommodation and PERRL ENT ENT exam: Present mucous membranes moist and normal oropharynx Neck Neck exam: Present full ROM; Absent lymphadenopathy and tenderness Respiratory Respiratory exam: Present normal respiratory exam and CTAB; Absent rales, rhonchi and wheezes Cardiovascular Cardiovascular exam: Present normal rate and rhythm, RRR, +S1 and +S2; Absent JVD and tachycardia GI/Abdominal GI/Abdominal exam: Present soft, hyperactive bowel sounds and tenderness (mild incisional tenderness); Absent distended Additional comments: mild bloody drainage of incision; Mejia drain serosanguineous fluid Extremities Exam Extremities exam: Present full ROM and neurovascular intact; Absent pedal edema Psychiatric Psychiatric exam: Present normal affect and normal mood A/P Assessment and plan (1) Colostomy status: Status: Acute (2) History of diverticulitis of colon: Status: Acute (3) Hypothyroidism: Status: Acute Qualifiers: Hypothyroidism type: acquired Qualified Code(s): E03.9 - Hypothyroidism, unspecified Narrative A/P Narrative: discontinue nasogastric tube Full liquid diet GI soft diet in the morning Time Spent With Patient Time: Total time spent is greater than 50% in coordination of care (as documented) at patient's floor/unit and/or counseling patient:
[2019-11-13] MEDS ORDERED: MELATONIN 3 MG TABLET PO PRN (13:15)
[2019-11-13] MEDS ORDERED: MAGNESIUM SULFATE 32.48 MEQ in DEXTROSE 5% IN WATER 100 ML IV ONE (13:21)
[2019-11-13] MEDS ORDERED: POTASSIUM PHOSPHATE 40 MEQ in DEXTROSE 5% IN WATER 500 ML IV ONE (13:21)
[2019-11-14] MEDS: KETOROLAC 30 MG/ML VIAL IV SCH ×2 (06:00→12:25)
[2019-11-14] MEDS: metroNIDAZOLE 500 MG/100 ML BAG IV SCH ×2 (06:00→12:25)
[2019-11-14] MEDS: 0.9 % SODIUM CHLORIDE 10 ML SYRINGE IV SCH (06:00)
[2019-11-14] MEDS: METOCLOPRAMIDE 10 MG/2 ML VIAL IV SCH ×2 (06:00→12:25)
[2019-11-14 07:08] LABS: ALT/SGPT 8 U/l (0-40); AST/SGOT 15 U/l (0-37); Albumin/Globulin Ratio 1.2 (1.0-2.3); Alkaline Phosphatase 43 U/L (39-117); Bilirubin,Direct < 0.2 mg/dL (0.0-0.3); Bilirubin,Total 0.4 mg/dL (0.0-1.0); Calcium 8.8 mg/dl (8.6-10.4); Carbon Dioxide 20 mmol/L (22-30); Chloride 104 mmol/L (96-108); Globulin 2.5 gm/dL (2.2-3.7); Glomerular Filtration Rate 96; Glucose 84 mg/dL (70-105); Lactate Dehydrogenase 128 U/L (94-250); Triglycerides 42 mg/dl (<150)
[2019-11-14 07:11] LABS: Blood Urea Nitrogen 7 mg/dl (8-23); Phosphorous 2.8 mg/dL (2.7-4.5)
[2019-11-14] MEDS: PANTOPRAZOLE 40 MG VIAL IV SCH (07:14)
--- NOTE | 2019-11-14 09:07 | XRay Report ---
CLINICAL INFORMATION: postoperative ileus COMPARISON: 11/13/2019 FINDINGS: The stomach, small and large bowel show mild symmetric dilatation compatible with mild postoperative ileus. No change. Small amount of free air in the subdiaphragmatic region has decreased - as expected. NG tube is now out. IMPRESSION: Mild postoperative ileus - no change. Interpreted and Authenticated by: Glenn Hunter 11/14/19
[2019-11-14] MEDS: LEVOFLOXACIN 750 MG/150 ML BAG IV SCH (09:56)
--- NOTE | 2019-11-14 12:47 | Discharge Summary ---
Discharge Provider Provider Patient information: Note initiated : 11/14/19 at 12:43 pm Service Date, if different from initiated Date: [] Patient: Joni Pedro 64 y/o M admitted on 11/10/19 for Colostomy Takedown. Chief Complaint: [] Date of admission: 11/10/19 05:02 Discharge date: 11/14/19 Primary care physician: Shonna Marquez Admitting clinician: Irineo Price Attending physician on admission: Irineo Price Attending physician on discharge: Irineo Price Discharging clinician: Irineo Price COURSE Hospital Course Hospital course: 64-year-old male with colostomy status post sigmoid resection and drainage of pelvic abscesses about 3 months ago. He was admitted through day surgery and underwent colostomy takedown on 22 November. He had a very uneventful postoperative course and was passing flatus on the second postoperative day. He started having bowel movements on day of this diet has been advanced. He is now tolerating soft diet without difficulty. At abdominal x-rays shows mild ileus but with gas extending to the rectum. He he is clinically stable and is discharged home in satisfactory condition Discharge diagnosis: colostomy status Reason for admission: postoperative colostomy takedown Procedures: colostomy takedown Pertinent studies/significant findings: none Complications: man Time Spent with Patient Time attestation: Total time spent providing and/or coordinating discharge services: Physical Examination Vital Signs Vital signs: Temp Pulse Resp BP Pulse Ox 98.0 F 65 20 136/86 98 11/14/19 12:00 11/14/19 12:00 11/14/19 12:00 11/14/19 12:00 11/14/19 12:00 General physical appearance General physical exam: well developed, well nourished and no distress Eyes Eye exam: PERRL and normal ocular movement ENT ENT exam: no hearing loss Head Head exam IM: Present atraumatic, normal inspection and normocephalic Neck Neck exam: no masses, no bruits, trachea midline, no lymphadenopathy and no venous distension Cardiovascular Cardiovascular exam IM: Present normal rate and rhythm, RRR, +S1 and +S2; Absent JVD Respiratory Respiratory exam: normal expansion, normal respiratory effort, clear to percussion and clear to auscultation Abdomen Abdomen: Present soft, tender (mild incisional tenderness;), bowel sounds (normal bowel sounds) and wound (NEMESIO drainage is bloody) Integumentary Integumentary: Present no rash, no growths and no abnormal pigmentation Neurologic Neurologic: Present normal coordination and normal sensation Musculoskeletal Musculoskeletal: Present normal gait and normal posture Psychiatric Psychiatric: Present oriented to time, oriented to person, oriented to place, speech is normal and memory intact Discharge Plan Patient/Caregiver Discharge Instructions Activity: increase activity as tolerated Diet: Regular Diet Prescriptions: New oxycodone-acetaminophen [Endocet] 5-325 mg Tablet 1 tab PO Q4H PRN (Reason: Pain) Qty: 40 RF: 0 metoclopramide HCl 10 mg tablet 10 mg PO Q6H PRN (Reason: nausea and vomiting) Qty: 10 RF: 0 simethicone 80 mg tablet,chewable 80 mg PO QHS Qty: 30 RF: 0 polyethylene glycol 3350 [Miralax] 17 gram powder in packet 17 g PO BID Qty: 30 RF: 0 Continued levothyroxine 100 MCG tablet 100 mcg PO DAILY RF: 0 ibuprofen 800 MG tablet 800 mg PO DAILY RF: 0 tmpouseo-yof-EP-lycopen-lutein 1 EACH tablet 1 each PO DAILY RF: 0 wexdykof-mhbzn-uefgo-CF borate 1 EACH tablet 1 each PO BID RF: 0 Follow Up Plan Follow up with: Irineo Price MD [Physician] - 11/23/19 9:00 am Patient Disposition: Home, Self-Care Plan of Treatment: contact the office if he should leave the dressing change Prognosis: Good Rehab Potential: Good I certify that the patient requires SNF services: No Overall status at discharge: patient is progressing back to baseline Discharge Orders: Discharge Order (Routine); Ordered 11/14/19 Ordered By: Irineo Price Pending Pending Pending: Resuscitation Status Full Code Diet GI Soft/Transitional Start WedNov 13 0800 Benzocaine (Cetacaine) 1 spray TOPICAL PRN PRN PRN Reason: sore throat Last Admin: 11/12/19 22:25 Dose: 1 dose Documented by: Admin: 11/11/19 15:23 Dose: 1 dose Documented by: FORD Hydromorphone HCl (Dilaudid) 1 mg IV Q2HP PRN; Protocol PRN Reason: Per Pain Protocol Last Admin: 11/12/19 16:20 Dose: 1 mg Documented by: Admin: 11/12/19 04:21 Dose: 1 mg Documented by: Admin: 11/11/19 19:20 Dose: 1 mg Documented by: Admin: 11/11/19 14:32 Dose: 1 mg Documented by: Admin: 11/10/19 11:50 Dose: 1 mg Documented by: SCARLETT Levofloxacin (Levaquin) 750 mg in 150 mls @ 100 mls/hr IV Q24H ANTONIA; Protocol Last Infusion: 11/14/19 11:26 Dose: 0 mls/hr Documented by: Admin: 11/14/19 09:56 Dose: 100 mls/hr Documented by: [email or web address] Infusion: 11/13/19 11:50 Dose: 0 mls/hr Documented by: Admin: 11/13/19 10:16 Dose: 100 mls/hr Documented by: Infusion: 11/12/19 11:15 Dose: 0 mls/hr Documented by: [email or web address] Admin: 11/12/19 09:45 Dose: 100 mls/hr Documented by: Infusion: 11/11/19 11:19 Dose: 0 mls/hr Documented by: Admin: 11/11/19 09:38 Dose: 100 mls/hr Documented by: FORD Metronidazole (Flagyl) 500 mg in 100 mls @ 100 mls/hr IV Q6H ANTONIA; Protocol Last Admin: 11/14/19 12:25 Dose: 100 mls/hr Documented by: Infusion: 11/14/19 07:15 Dose: 0 mls/hr Documented by: [email or web address] Admin: 11/14/19 06:00 Dose: 100 mls/hr Documented by: [email or web address] Infusion: 11/14/19 00:52 Dose: 100 mls/hr Documented by: [email or web address] Admin: 11/13/19 23:52 Dose: 100 mls/hr Documented by: [email or web address] Infusion: 11/13/19 19:21 Dose: 100 mls/hr Documented by: [email or web address] Admin: 11/13/19 18:21 Dose: 100 mls/hr Documented by: Infusion: 11/13/19 14:15 Dose: 0 mls/hr Documented by: Admin: 11/13/19 13:12 Dose: 100 mls/hr Documented by: Infusion: 11/13/19 06:52 Dose: 100 mls/hr Documented by: Admin: 11/13/19 05:52 Dose: 100 mls/hr Documented by: Infusion: 11/13/19 01:04 Dose: 0 mls/hr Documented by: Admin: 11/13/19 00:02 Dose: 100 mls/hr Documented by: Infusion: 11/12/19 19:04 Dose: 100 mls/hr Documented by: Admin: 11/12/19 18:04 Dose: 100 mls/hr Documented by: Infusion: 11/12/19 13:27 Dose: 0 mls/hr Documented by: Admin: 11/12/19 12:27 Dose: 100 mls/hr Documented by: Infusion: 11/12/19 07:09 Dose: 100 mls/hr Documented by: Admin: 11/12/19 06:09 Dose: 100 mls/hr Documented by: Infusion: 11/12/19 00:55 Dose: 100 mls/hr Documented by: Admin: 11/11/19 23:55 Dose: 100 mls/hr Documented by: Infusion: 11/11/19 18:08 Dose: 100 mls/hr Documented by: Admin: 11/11/19 17:08 Dose: 100 mls/hr Documented by: Infusion: 11/11/19 16:16 Dose: 0 mls/hr Documented by: Admin: 11/11/19 12:45 Dose: 100 mls/hr Documented by: Infusion: 11/11/19 07:39 Dose: 0 mls/hr Documented by: Admin: 11/11/19 06:10 Dose: 100 mls/hr Documented by: Infusion: 11/11/19 00:47 Dose: 100 mls/hr Documented by: Admin: 11/10/19 23:47 Dose: 100 mls/hr Documented by: Infusion: 11/10/19 18:42 Dose: 100 mls/hr Documented by: Admin: 11/10/19 17:42 Dose: 100 mls/hr Documented by: Infusion: 11/10/19 13:30 Dose: 0 mls/hr Documented by: Admin: 11/10/19 12:21 Dose: 100 mls/hr Documented by: SCARLETT Ketorolac Tromethamine (Toradol) 30 mg IV Q6 ANTONIA Stop: 11/14/19 15:08 Last Admin: 11/14/19 12:25 Dose: 30 mg Documented by: Admin: 11/14/19 06:00 Dose: 30 mg Documented by: Admin: 11/13/19 23:52 Dose: 30 mg Documented by: Admin: 11/13/19 18:22 Dose: 30 mg Documented by: Admin: 11/13/19 13:02 Dose: 30 mg Documented by: Admin: 11/13/19 05:51 Dose: 30 mg Documented by: Admin: 11/13/19 00:02 Dose: 30 mg Documented by: Admin: 11/12/19 17:59 Dose: 30 mg Documented by: Admin: 11/12/19 12:30 Dose: 30 mg Documented by: Admin: 11/12/19 06:09 Dose: 30 mg Documented by: Admin: 11/11/19 23:55 Dose: 30 mg Documented by: Admin: 11/11/19 17:08 Dose: 30 mg Documented by: Admin: 11/11/19 12:45 Dose: 30 mg Documented by: Admin: 11/11/19 06:09 Dose: 30 mg Documented by: Admin: 11/10/19 23:47 Dose: 30 mg Documented by: Admin: 11/10/19 17:48 Dose: 30 mg Documented by: SCARLETT Lorazepam (Ativan) 1 mg IV Q6HP PRN PRN Reason: ANXIETY/SEDATION Last Admin: 11/11/19 19:21 Dose: 1 mg Documented by: TED Melatonin (Melatonin 3mg Tablet) 3 mg PO HSP PRN PRN Reason: Sleep Last Admin: 11/13/19 20:12 Dose: 3 mg Documented by: ANGELICA Metoclopramide HCl (Reglan) 10 mg IV Q6 [facility] Admin: 11/14/19 12:25 Dose: 10 mg Documented by: Admin: 11/14/19 06:00 Dose: 10 mg Documented by: Admin: 11/13/19 23:52 Dose: 10 mg Documented by: Admin: 11/13/19 18:22 Dose: 10 mg Documented by: Admin: 11/13/19 13:02 Dose: 10 mg Documented by: Admin: 11/13/19 05:51 Dose: 10 mg Documented by: Admin: 11/13/19 00:02 Dose: 10 mg Documented by: Admin: 11/12/19 17:51 Dose: 10 mg Documented by: Admin: 11/12/19 12:30 Dose: 10 mg Documented by: Admin: 11/12/19 06:09 Dose: 10 mg Documented by: Admin: 11/11/19 23:50 Dose: 10 mg Documented by: Admin: 11/11/19 17:08 Dose: 10 mg Documented by: Admin: 11/11/19 12:45 Dose: 10 mg Documented by: Admin: 11/11/19 06:10 Dose: 10 mg Documented by: Admin: 11/10/19 23:47 Dose: 10 mg Documented by: Admin: 11/10/19 17:42 Dose: 10 mg Documented by: Admin: 11/10/19 12:20 Dose: 10 mg Documented by: SCARLETT Pantoprazole Sodium (Protonix) 40 mg IV BIDAC [facility] Admin: 11/14/19 07:14 Dose: 40 mg Documented by: Admin: 11/13/19 18:22 Dose: 40 mg Documented by: Admin: 11/13/19 07:04 Dose: 40 mg Documented by: Admin: 11/12/19 17:51 Dose: 40 mg Documented by: Admin: 11/12/19 07:27 Dose: 40 mg Documented by: Admin: 11/11/19 17:07 Dose: 40 mg Documented by: Admin: 11/11/19 08:23 Dose: 40 mg Documented by: Admin: 11/10/19 16:39 Dose: 40 mg Documented by: SCARLETT Sodium Chloride (Saline Flush) 10 ml IV Q8 ANTONIA Last Admin: 11/14/19 06:00 Dose: 10 ml Documented by: Admin: 11/13/19 23:53 Dose: 10 ml Documented by: Admin: 11/13/19 15:55 Dose: Not Given Documented by: Admin: 11/13/19 05:52 Dose: 10 ml Documented by: Admin: 11/12/19 22:25 Dose: 10 ml Documented by: Admin: 11/12/19 13:59 Dose: Not Given Documented by: Admin: 11/12/19 04:24 Dose: Not Given Documented by: Admin: 11/11/19 20:40 Dose: Not Given Documented by: Admin: 11/11/19 14:15 Dose: Not Given Documented by: Admin: 11/11/19 04:26 Dose: Not Given Documented by: Admin: 11/10/19 21:07 Dose: Not Given Documented by: Admin: 11/10/19 12:26 Dose: Not Given Documented by: SCARLETT Shift Summary 11/14/19 03:47 Shift Summary by Estephania De Dios Slept most of the night. Saline locked x2. NEMESIO draining serosanguineous drainage. Up ad hailee in halls, gait steady; voiding via urinal in BR. Tolerated full liquid diet; will have GI soft this am. Has had minimal discomfort tonight; not needed any pain meds. Plan is for him to d/c home today. Initialized on 11/14/19 03:47 - END OF NOTE
--- NOTE | 2019-11-14 14:34 | Operative Note ---
DATE OF OPERATION: 11/10/2019 PREOPERATIVE DIAGNOSIS: Colostomy status. POSTOPERATIVE DIAGNOSIS: Colostomy status. PROCEDURE: Colostomy takedown. SURGEON: Irineo Price M.D. DESCRIPTION OF PROCEDURE: Under general anesthesia, the stoma was closed with running locking 2-0 silk. The area was then prepped and draped. Time-out procedure was carried out as per protocol. A midline incision was made. There were a few adhesions. The severely inflamed tissue reaction had totally resolved and the peritoneum was well healed. The rectal stump was easily identified and was very viable and suitable for reanastomosis. The stoma was excised and the stoma end was doubly stapled with TA 60 stapler and excised. End-to-side anastomosis was carried out using 2-0 Monocryl running locking inner layer and 2-0 Prolene outer layer. Mesenteric defect was closed with interrupted 3-0 silk. A Mejia drain was placed in the pelvis. The fascia at the stoma site was closed with interrupted #1 Prolene. Subcutaneous tissue was closed with 2-0 Vicryl and the skin was closed with mandy. Tegaderm dressing was placed. The patient tolerated the procedure well. He was awakened, extubated, and transferred to the postanesthetic care unit in satisfactory condition. LCS:awa Job ID: [id number] Doc ID: [id number] Irineo Price M.D.
== END 2019-11-14 14:20 | disposition home or self-care (01) | DRG 346 ==
LOC: MEDSUR 05:02
PROVIDERS: ADMIT Family Medicine Adult Medicine; ATTEND Family Medicine Adult Medicine